=== PATIENT | female | born 1930 | race Caucasian/White ===

== ENCOUNTER 2017-06-24 15:51 | Emergency (ER) | payer MEDICARE, OTHER ==
[~2017-06-24] VITALS: Ht 160 cm; Wt 50.0 kg
[~2017-06-24 15:51] MED LIST: LASI20TA PO; NAPR550 PO; VITA500T49 PO
[2017-06-24 16:01] VITALS: BP 135/63; PULSE 75; RESP 19; TEMP 97.8; O2SAT 95
--- NOTE | 2017-06-24 16:32 | PD ---
HPI Chief Complaint: Fall Time Seen by Provider: 16:29 Travel History International Travel<30 days: No Contact w/Intl Traveler<30days: No Traveled to known affect area: No History of Present Illness HPI Patient comes in from assisted living facility where she had a witnessed fall while transferring from one seat to another. Patient states that she fell backwards hitting her head and lost consciousness. Staff reports that this was a witnessed fall and loss of consciousness confirmed. Patient reports only pain she is having over the bump on her head from where she hit the ground. Denies anything making it better. States is worse to palpation. Denies any radiation. Denies any headache, change in vision, neck pain, numbness or tingling anywhere, chest pain, shortness of breath, or other concerns. Patient denies taking any blood thinners she is aware. PFSH Past Medical History Hx Anticoagulant Therapy: Yes ([facility] STAFF STATES PT IS ON DAILY BABY ASPIRIN. THIS IS NOT ON MED LIST) Arthritis: No Asthma: No Heart Rhythm Problems: No Cancer: No Cardiovascular Problems: No High Cholesterol: No Chest Pain: No Congestive Heart Failure: No COPD: No Cerebrovascular Accident: No Diabetes: No Diminished Hearing: No GERD: No Glaucoma: No Genitourinary: No Headaches: No Hepatitis: No Hiatal Hernia: No Hypertension: No Kidney Stones: No Musculoskeletal: No Neurologic: No Reproductive: No Respiratory: No Migraines: No Myocardial Infarction: No Renal Failure: No Seizures: No Sleep Apnea: No Thyroid Disease: No Ulcer: No PNEUMOCCOCAL Vaccine (Year): 2 Menopausal: Yes : 2 Para: 2 Past Surgical History Abdominal Surgery: No Appendectomy: No Cardiac Surgery: No Section: No Cholecystectomy: No Ear Surgery: No Endocrine Surgery: No Eye Surgery: Yes (BILAT. CATARACT REMOVAL) Genitourinary Surgery: No Gynecologic Surgery: Yes (UTERINE PROLASE REPAIR 2007) Oral Surgery: No Pacemaker: No Thoracic Surgery: No Tonsillectomy: Yes Other Surgery: Yes Social History Alcohol Use: No Tobacco Use: No Substance Use: No Allergies-Medications (Allergen,Severity, Reaction): Coded Allergies: Sulfa (Verified Allergy, Severe, PASSES OUT, 04/07/12) Reported Meds & Prescriptions Reported Meds & Active Scripts Active Anaprox Ds (Naproxen Sodium) 550 Mg Tab 550 Mg PO BID Reported Vitamin B12 (Cyanocobalamin) 500 Mcg Tab 500 Mcg PO DAILY Lasix (Furosemide) 20 Mg Tab 20 Mg PO DAILY Review of Systems Except as stated in HPI: all other systems reviewed are Neg Physical Exam Narrative GENERAL: Well-developed, well nourished, in no acute distress, and non-ill appearing. SKIN: Focused skin assessment warm and dry. Small hematoma left occipital lobe that is tender to palpation. There is no skull depression or crepitus. HEAD: Atraumatic. Normocephalic. EYES: Pupils equal and round. EOMI. No scleral icterus. No injection or drainage. ENT: No nasal bleeding or discharge. Mucous membranes pink and moist. NECK: Trachea midline. Supple. No nuclear rigidity. No cervical spine tenderness or crepitus. CARDIOVASCULAR: Regular rate and rhythm. No murmur appreciated. RESPIRATORY: No accessory muscle use. No respiratory distress. Clear to auscultation. Breath sounds equal bilaterally. GASTROINTESTINAL: Abdomen soft, non-tender, nondistended, and no guarding. Hepatic and splenic margins not palpable. No pulsatile mass. MUSCULOSKELETAL: No obvious deformities. No clubbing. No cyanosis. No edema. Full range of motion. Sensation intact and equal bilateral deltoid. Radial pulses 2+, intact, and equal bilaterally. NEUROLOGICAL: Awake and alert. No obvious cranial nerve deficits. Motor grossly within normal limits. Normal speech. PSYCHIATRIC: Appropriate mood and affect; insight and judgment normal. Data Data Last Documented VS Vital Signs Date Time Temp Pulse Resp B/P Pulse Ox O2 Delivery O2 Flow Rate FiO2 06/25/17 06:22 73 16 136/72 98 Room Air 06/24/17 16:[address] Brain W/O Iv Contrast(Rout) (06/24/17 ) Ct Cerv Spine W/O Contrast (06/24/17 ) Apply Cervical Collar (06/24/17 16:28) Ice/Cold Pack (06/24/17 16:28) MDM Medical Decision Making Medical Screen Exam Complete: Yes Emergency Medical Condition: Yes Interpretation(s) CT cervical spine read by the radiologist shows: Degenerative changes. No evidence of acute bony injury in the cervical spine. CT scan of head read by the radiologist: Normal examination for a patient of this age. No significant change has occurred. Differential Diagnosis Closed head injury, hemorrhage, fracture, strain, fall, hematoma, other Narrative Course Patient presents with closed head injury. There was no evidence of cranial or intracranial injury noted on CT of the head and no evidence of fracture or injury to cervical spine on C-spine CT. The patient has been behaving normally and no notable altered mental status. [place] score of 15. The neurologic exam is normal. The patient is awake and aware and motor sensory exams are normal. There is no clinical evidence to support intracranial injury or bleed. Patient in no obvious distress upon re-evaluation. All pertinent Radiology result(s) discussed with patient. Any questions/concerns in reference to patient diagnosis/condition discussed and clarified prior to patient's discharge. Discussed patient with Dr. Marquez prior to discharge, who is in agreement with plan of care and disposition. Reinforced sheer importance of close follow up with patient's primary physician or primary care clinic. Instructed patient to return to ED immediately, if symptoms return/worsen. Pt showed understanding of above instructions. Further instructions and recommendations were detailed in discharge paperwork. Pt left without difficulty out of ED at discharge. Diagnosis Primary Impression: Closed head injury Qualified Code: S09.90XA - Closed head injury, initial encounter Additional Impressions: Hematoma Fall Qualified Code: W19.XXXA - Fall, initial encounter Patient Instructions: Fall Prevention for Older Adults (ED), General Instructions, Head Injury (ED), Hematoma (ED) Additional Instructions: Follow-up with your primary care physician one to 2 days for reevaluation. Apply ice to affected area twice as needed for pain. Return to the emergency department if symptoms get worse. Disposition: 01 DISCHARGE HOME Condition: Stable Scotty Daly Jun 24, 2017 16:32
--- NOTE | 2017-06-24 17:42 | RADRPT ---
EXAM DATE/TIME: 06/24/2017 17:26 [facility] COMPARISON: No previous studies available for comparison. INDICATIONS : Trauma. Fall. Contusion back of head. RADIATION DOSE: 37.41 CTDIvol (mGy) MEDICAL HISTORY : None SURGICAL HISTORY : None. ENCOUNTER: Initial ACUITY: 1 day PAIN SCALE: 5/10 LOCATION: cranial TECHNIQUE: Multiple contiguous axial images were obtained of the head. Using automated exposure control and adj ustment of the mA and/or kV according to patient size, radiation dose was kept as low as reasonably a chievable to obtain optimal diagnostic quality images. DICOM format image data is available electro nically for review and comparison. FINDINGS: CEREBRUM: The ventricles are normal for age. No evidence of midline shift, mass lesion, hemorrhage or acute in farction. No extra-axial fluid collections are seen. POSTERIOR FOSSA: The cerebellum and brainstem are intact. The 4th ventricle is midline. The cerebellopontine angle i s unremarkable. EXTRACRANIAL: The visualized portion of the orbits is intact. SKULL: The calvaria is intact. No evidence of skull fracture. CONCLUSION: Normal examination for a patient of this age. No significant change has occurred. Tomasz Sanchez MD on June 24, 2017 at 17:39 Board Certified Radiologist. This report was verified electronically.
[2017-06-24 17:48] VITALS: BP 141/61; PULSE 68; RESP 17; O2SAT 98
--- NOTE | 2017-06-24 17:57 | RADRPT ---
EXAM DATE/TIME: 06/24/2017 17:28 [facility] COMPARISON: No previous studies available for comparison. INDICATIONS : Trauma. Fall. RADIATION DOSE: 21.24 CTDIvol (mGy) MEDICAL HISTORY : None SURGICAL HISTORY : None. ENCOUNTER: Initial ACUITY: 1 day PAIN SCALE: 5/10 LOCATION: neck TECHNIQUE: Volumetric scanning of the cervical spine was performed. Multiplanar reconstructions in the sagittal, coronal and oblique axial planes were performed. Using automated exposure control and adjustment o f the mA and/or kV according to patient size, radiation dose was kept as low as reasonably achievable to obtain optimal diagnostic quality images. DICOM format image data is available electronically f or review and comparison. FINDINGS: The cervical spine alignment is satisfactory. There is no evidence of fracture. No significant bony c anal or foraminal compromise is noted. There is mild degenerative change with disc space narrowing an d endplate osteophyte formation most significantly at C5-6. Mild broad disc protrusion is present, mo st conspicuously at C4-5. There are degenerative changes in the posterior facet joints, most notably at the cervicothoracic junction level. There is no evidence of paraspinal hematoma. CONCLUSION: Degenerative changes. No evidence of acute bony injury in the cervical spine Clement Londono MD on June 24, 2017 at 17:54 Board Certified Radiologist. This report was verified electronically.
[2017-06-24 23:00] VITALS: BP 153/68; PULSE 79; RESP 16; O2SAT 99
[2017-06-25 06:22] VITALS: BP 136/72; PULSE 73; RESP 16; O2SAT 98
== END 2017-06-25 07:39 | disposition home or self-care (01) ==
LOC: NEPE 15:51
DX: S09.90XA Unspecified injury of head, initial encounter (principal); S00.83XA Contusion of other part of head, initial encounter; W18.30XA Fall on same level, unspecified, initial encounter; Z79.899 Other long term (current) drug therapy
CPT/HCPCS: 70450; 72125; 99285

== ENCOUNTER 2017-09-23 07:58 | Inpatient (IN) | payer MEDICARE, OTHER ==
[2017-09-23] VITALS (12 sets, daily range): BP systolic 102–120; BP diastolic 51–78; PULSE 71–96; RESP 17–22; TEMP 97–100.7; O2SAT 90–97
[~2017-09-23] VITALS: Ht 165.1 cm; Wt 51.3 kg
[2017-09-23] MEDS ORDERED: SODIUM CHLOR 0.9% 1000 ML INJ 1,000 ML IV ONE ×2 (08:07)
[2017-09-23] MEDS ORDERED: SODIUM CHLOR 0.9% 1000 ML INJ 400 ML IV ONE (08:07)
[2017-09-23] MEDS ORDERED: ACETAMINOPHEN 650 MG SUPP RECTAL ONE (08:15)
--- NOTE | 2017-09-23 08:25 | PD ---
HPI . Cough Chief Complaint: Altered Mental Status Time Seen by Provider: 08:07 Travel History International Travel<30 days: No Contact w/Intl Traveler<30days: No Traveled to known affect area: No History of Present Illness HPI This is a [facility] resident who was sent to us for evaluation of cough and altered mental status. Onset of symptoms was about 3 days ago. Symptoms have reportedly been getting progressively worse. This patient is nonverbal this morning and is unable to help us with her history and physical. PFSH Past Medical History Narrative Medical This lady really doesn't have any chronic medical problems such as hypertension or diabetes. Hx Anticoagulant Therapy: Yes ([facility]NF STAFF STATES PT IS ON DAILY BABY ASPIRIN. THIS IS NOT ON MED LIST) Arthritis: No Asthma: No Anxiety: Yes Heart Rhythm Problems: No Cancer: No Cardiovascular Problems: No High Cholesterol: No Chest Pain: No Congestive Heart Failure: No COPD: No Cerebrovascular Accident: No Dementia: Yes Diabetes: No Diminished Hearing: No GERD: No Glaucoma: No Genitourinary: Yes (UTI ) Headaches: No Hepatitis: No Hiatal Hernia: No Hypertension: No Kidney Stones: No Medical other: Yes (VIT D DEFICIENCY, HYPOKALEMIA) Musculoskeletal: No Neurologic: Yes (INSOMNIA ) Psychiatric: Yes Reproductive: No Respiratory: No Migraines: No Myocardial Infarction: No Renal Failure: No Schizophrenia: Yes Seizures: No Sleep Apnea: No Thyroid Disease: No Ulcer: No PNEUMOCCOCAL Vaccine (Year): 2 Menopausal: Yes : 2 Para: 2 Past Surgical History Abdominal Surgery: No Appendectomy: No Cardiac Surgery: No Section: No Cholecystectomy: No Ear Surgery: No Endocrine Surgery: No Eye Surgery: Yes (BILAT. CATARACT REMOVAL) Genitourinary Surgery: No Gynecologic Surgery: Yes (UTERINE PROLASE REPAIR 2007) Oral Surgery: No Pacemaker: No Thoracic Surgery: No Tonsillectomy: Yes Other Surgery: Yes Social History Alcohol Use: No Tobacco Use: No Substance Use: No Allergies-Medications (Allergen,Severity, Reaction): Coded Allergies: Sulfa (Sulfonamide Antibiotics) (Verified Allergy, Intermediate, hives, ) Reported Meds & Prescriptions Reported Meds & Active Scripts Active Reported Ipratropium Neb (Ipratropium [place]) 0.5 Mg/2.5 Ml Amp 0.5 Mg NEB Q6HR NEB PRN Quetiapine (Quetiapine Fumarate) 50 Mg Tab 50 Mg PO HS Aricept (Donepezil) 23 Mg Tab 10 Mg PO HS Do not split, crushed or chewed. Allergy Relief (Loratadine) 10 Mg Tab 10 Mg PO DAILY 7 Days Potassium Chloride Liq (Potassium Chloride) 20 Meq/15 Ml Soln 10 Meq PO DAILY Vitamin D (Cholecalciferol) 2,000 Unit Cap 1,000 Tab PO DAILY Lasix (Furosemide) 20 Mg Tab 20 Mg PO BID Megace Liq (Megestrol Acetate) 40 Mg/Ml Susp 400 Mg PO BID Temazepam 15 Mg Cap 15 Mg PO HS PRN Lorazepam 0.5 Mg Tab 0.5 Mg PO BID PRN Keflex (Cephalexin) 250 Mg Cap 250 Mg PO Q8HR 7 Days Review of Systems ROS Limitations: Other: (nonverbal) Physical Exam Narrative GENERAL: This patient is alert and she makes eye contact with me. SKIN: warm/dry. Intact. Good turgor. She does have numerous superficial bruises. HEAD: Normocephalic. Atraumatic. EYES: Pupils equal and round. No scleral icterus. No injection or drainage. ENT: No nasal bleeding or discharge. Mucous membranes pink and moist. NECK: Trachea midline. Full range of motion without pain.. CARDIOVASCULAR: Regular rate and rhythm. Heart sounds were normal. RESPIRATORY: No accessory muscle use. Clear to auscultation anteriorly. Breath sounds equal bilaterally. Wet sounding cough. Sats in the low 90s on oxygen. GASTROINTESTINAL: Abdomen soft. Nontender. Bowel sounds present. Nondistended. MUSCULOSKELETAL: No obvious deformities. NEUROLOGICAL: Awake and alert. No obvious cranial nerve deficits. Motor grossly within normal limits. Nonverbal. PSYCHIATRIC: Unable to assess. Data Data Last Documented VS Vital Signs Date Time Temp Pulse Resp B/P (MAP) Pulse Ox O2 Delivery O2 Flow Rate FiO2 09/23/17 09:32 99.1 88 18 116/78 (91) 97 Nasal Cannula 4.00 Orders Orders Electrocardiogram (09/23/17 08:07) Complete Blood Count With Diff (09/23/17 08:07) Comprehensive Metabolic Panel (09/23/17 08:07) Lactic Acid Sepsis Protocol (09/23/17 08:07) Urinalysis - C+S If Indicated (09/23/17 08:07) Blood Culture (09/23/17 08:07) Chest, Single Ap (09/23/17 08:07) Blood Glucose (09/23/17 08:07) Ecg Monitoring (09/23/17 08:07) Iv Access Insert/Monitor (09/23/17 08:07) Cath For Specimen (09/23/17 08:07) Oximetry (09/23/17 08:07) Oxygen Administration (09/23/17 08:07) Acetaminophen Supp (Tylenol Supp) (09/23/17 08:15) Sodium Chlor 0.9% 1000 Ml Inj (Ns 1000 M (09/23/17 08:07) Sodium Chlor 0.9% 1000 Ml Inj (Ns 1000 M (09/23/17 08:07) Sodium Chlor 0.9% 1000 Ml Inj (Ns 1000 M (09/23/17 08:07) Urine Culture (09/23/17 08:10) Ceftriaxone Inj (Rocephin Inj) (09/23/17 09:30) Azithromycin Inj (Zithromax Inj) (09/23/17 10:15) Labs Laboratory Tests Test 09/23/17 08:10 09/23/17 08:20 Urine Color YELLOW Urine Turbidity CLEAR Urine pH 7.0 Urine Specific [place] 1.018 Urine Protein 30 mg/dL Urine Glucose (UA) NEG mg/dL Urine Ketones NEG mg/dL Urine Occult Blood MOD Urine Nitrite NEG Urine Bilirubin NEG Urine Urobilinogen 2.0 MG/DL Urine Leukocyte Esterase SMALL Urine RBC 4 /hpf Urine WBC 8 /hpf Urine Transitional Epithelial Cells <1 /hpf Urine Bacteria RARE /hpf Urine Granular Casts 1 /lpf Microscopic Urinalysis Comment CATH-CULTURE IND White Blood Count 18.2 TH/MM3 Red Blood Count 3.71 MIL/MM3 Hemoglobin 11.7 GM/DL Hematocrit 34.7 % Mean Corpuscular Volume 93.5 FL Mean Corpuscular Hemoglobin 31.5 PG Mean Corpuscular Hemoglobin Concent 33.7 % Red Cell Distribution Width 14.0 % Platelet Count 366 TH/MM3 Mean Platelet Volume 8.1 FL Neutrophils (%) (Auto) 84.8 % Lymphocytes (%) (Auto) 10.3 % Monocytes (%) (Auto) 4.2 % Eosinophils (%) (Auto) 0.3 % Basophils (%) (Auto) 0.4 % Neutrophils # (Auto) 15.4 TH/MM3 Lymphocytes # (Auto) 1.9 TH/MM3 Monocytes # (Auto) 0.8 TH/MM3 Eosinophils # (Auto) 0.1 TH/MM3 Basophils # (Auto) 0.1 TH/MM3 CBC Comment DIFF FINAL Differential Comment Blood Urea Nitrogen 29 MG/DL Creatinine 0.97 MG/DL Random Glucose 108 MG/DL Total Protein 7.0 GM/DL Albumin 2.6 GM/DL Calcium Level 8.7 MG/DL Alkaline Phosphatase 60 U/L Aspartate Amino Transf (AST/SGOT) 29 U/L Alanine Aminotransferase (ALT/SGPT) 20 U/L Total Bilirubin 0.7 MG/DL Sodium Level 139 MEQ/L Potassium Level 3.8 MEQ/L Chloride Level 106 MEQ/L Carbon Dioxide Level 25.0 MEQ/L Anion Gap 8 MEQ/L Estimat Glomerular Filtration Rate 54 ML/MIN Lactic Acid Level 1.1 mmol/L MDM Medical Decision Making Medical Screen Exam Complete: Yes Emergency Medical Condition: Yes Medical Record Reviewed: Yes (this patient has been seen here in the past for injuries. She does not have any chronic medical issues.) Interpretation(s) EKG shows a normal sinus rhythm with no acute ischemic changes. Differential Diagnosis Differential diagnosis includes but is not limited to viral respiratory illness , bronchitis, pneumonia, allergies, CHF, asthma/COPD. Narrative Course This patient presents to us from a [facility] for evaluation of cough and altered mental status. Septic workup is in process. CBC & BMP Diagram 09/23/17 08:20 Total Protein 7.0, Albumin 2.6 L, Calcium Level 8.7, Alkaline Phosphatase 60, Aspartate Amino Transf (AST/SGOT) 29, Alanine Aminotransferase (ALT/SGPT) 20, Total Bilirubin 0.7 LA 1.1 UA>>mod blood, small LE, 4 RBCs, 8 WBCs, rare bact Last Impressions Chest X-Ray 09/23/17 0807 Signed Impressions: Service Date/Time: Saturday, September 23, 2017 08:15 - CONCLUSION: 1. Airspace consolidation in the right medial and left lower lung zones. Differential considerations include aspiration vs pneumonia given history of cough. Ramon Pires MD The chest x-ray was independently viewed by me. Critical Care Narrative Aggregate critical care time was 45 minutes. Time to perform other separately billable procedures was not included in the critical care time. My time did not include minutes spent treating any other patients simultaneously or on activities that did not directly contribute to the patient's treatment. The services I provided to this patient were to treat and/or prevent clinically significant deterioration due to sepsis and hypoxia I provided critical care services requiring my management, as noted below: Chart data review, documentation time, medication orders and management, vital sign assessments/reviewing monitor data, ordering and reviewing lab tests, ordering and interpreting/reviewing x-rays and diagnostic studies, care of the patient and discussion of the patient with the admitting physicians Sepsis Criteria SIRS Criteria (2 or more): Heart rate over 90, WBC > 73943, < 4000 or > 10% bands Sepsis Criteria (SIRS+source): Infect source susp/known Criteria Outcome: Meets SIRS criteria, Meets sepsis criteria Physician Communication Physician Communication Dr. Andrade will admit Diagnosis Primary Impression: Sepsis Qualified Codes: A41.9 - Sepsis, unspecified organism Additional Impressions: Pneumonia Qualified Codes: J18.9 - Pneumonia, unspecified organism Urinary tract infection Qualified Codes: N30.00 - Acute cystitis without hematuria Admitting Information Admitting Physician Requests: Admit Condition: Stable Ban Hernandez MD Sep 23, 2017 08:25
[2017-09-23] MEDS ORDERED: LORA-650 PO (08:40)
[2017-09-23] MEDS ORDERED: POTA10SO12 PO (08:40)
[2017-09-23] MEDS ORDERED: QUET5TAB PO (08:40)
[2017-09-23] MEDS ORDERED: CEPH-459 PO (08:40)
[2017-09-23] MEDS ORDERED: TEMA15CA PO (08:40)
[2017-09-23] MEDS ORDERED: FURO1TAB62 PO (08:40)
[2017-09-23] MEDS ORDERED: VITA200013 PO (08:40)
[2017-09-23] MEDS ORDERED: IPRA0.02 NEB (08:40)
[2017-09-23] MEDS ORDERED: LORA0.5T PO (08:40)
[2017-09-23] MEDS ORDERED: MEGE40S PO (08:40)
[2017-09-23] MEDS ORDERED: ARIC23TA PO (08:40)
[2017-09-23 08:43] LABS: BACTERIA, URINE RARE /hpf; BLOOD, URINE MOD (NEG); GLUCOSE,URINE NEG (NEG); GRANULAR CAST, URINE 1 /lpf; KETONE, URINE NEG (NEG); NITRITE,URINE NEG (NEG); TRANSITIONAL EPI CELLS, URINE <1 /hpf; URINE COLOR YELLOW (YELLW/STRAW)
[2017-09-23 08:44] LABS: AUTOMATED NEUTROPHIL # 15.4 TH/MM3 (1.8-7.7); BASOPHIL # 0.1 TH/MM3 (0-0.2); BASOPHIL % 0.4 % (0.0-2.0); EOSINOPHIL # 0.1 TH/MM3 (0-0.4); EOSINOPHIL % 0.3 % (0.0-4.0); HEMATOCRIT 34.7 % (35.0-46.0); HEMO FLAGS DIFF FINAL; LYMPH % 10.3 % (9.0-44.0); LYMPHOCYTE # 1.9 TH/MM3 (1.0-4.8); MEAN CELL VOLUME 93.5 FL (80.0-100.0); MEAN CORPUSCULAR HEMOGLOBIN 31.5 PG (27.0-34.0); MEAN CORPUSCULAR HGB CONC 33.7 % (32.0-36.0); MONO % 4.2 % (0.0-8.0); NEUT % 84.8 % (16.0-70.0); PLATELET COUNT 366 TH/MM3 (150-450); RED BLOOD COUNT 3.71 MIL/MM3 (4.00-5.30); WHITE BLOOD COUNT 18.2 TH/MM3 (4.0-11.0)
[2017-09-23 08:45] LABS: COMMENT (UR) CATH-CULTURE IND; CULTURE IF INDICATED CATH CULTURE IND
[2017-09-23 09:05] LABS: ANION GAP 8 MEQ/L (5-15); AST (GOT) 29 U/L (15-37); BLOOD UREA NITROGEN 29 MG/DL (7-18); CHLORIDE 106 MEQ/L (98-107); GLOMERULAR FILTRATION RATE 54 ML/MIN (>89); POTASSIUM 3.8 MEQ/L (3.5-5.1); SODIUM (NA) 139 MEQ/L (136-145)
[2017-09-23 09:06] LABS: ALT (GPT) 20 U/L (10-53)
[2017-09-23 09:08] LABS: ALKALINE PHOSPHATASE 60 U/L (45-117); TOTAL BILIRUBIN ADULT 0.7 MG/DL (0.2-1.0)
[2017-09-23] MEDS ORDERED: cefTRIAXone INJ 1,000 MG in SODIUM CHLORIDE 0.9% INJ 100 ML IV ONE (09:30)
--- NOTE | 2017-09-23 09:46 | RADRPT ---
EXAM DATE/TIME: 09/23/2017 08:15 [facility] COMPARISON: CHEST SINGLE AP, November 27, 2012, 17:03. INDICATIONS : Cough. MEDICAL HISTORY : None. SURGICAL HISTORY : None. ENCOUNTER: Initial ACUITY: 1 day PAIN SCORE: Non-responsive. LOCATION: Bilateral chest FINDINGS: Airspace consolidation in mild volume loss in the medial right and left lower lung zones. Cardiomedia stinal contours are within normal limits. Bony thorax is intact. CONCLUSION: 1. Airspace consolidation in the right medial and left lower lung zones. Differential considerations include aspiration vs pneumonia given history of cough. Ramon Pires MD on September 23, 2017 at 9:42 Board Certified Radiologist. This report was verified electronically.
[2017-09-23] MEDS ORDERED: AZITHROMYCIN INJ 500 MG in SODIUM CHLOR 0.9% 250 ML INJ 250 ML IV ONE (10:15)
[2017-09-23] MEDS ORDERED: RESP: ALBUTEROL 2.5 MG/IPRATROPIUM 0.5 MG NEB (PRN) INH (10:45)
[2017-09-23] MEDS ORDERED: ONDANSETRON HCL 4 MG/2 ML VIAL IV PUSH PRN (10:45)
[2017-09-23] MEDS ORDERED: ACETAMINOPHEN 325 MG SUPP RECTAL PRN (10:45)
--- NOTE | 2017-09-23 10:58 | HHI.HP ---
[facility] Jay[facility] Joshua M.D. Admission Diagnosis sepsis, pneumonia, UTI Diagnoses: (1) Dementia (2) Sepsis (3) Pneumonia (4) Urinary tract infection Chief Complaint: Respiratory distress Travel History International Travel<30 Days: No Contact w/Intl Traveler <30 Da: No Traveled to Known Affected Are: No Sepsis Criteria SIRS Criteria (2 or more): Heart rate over 90, WBC > 69187, < 4000 or > 10% bands Sepsis Criteria (SIRS+source): Infect source susp/known Criteria Outcome: Meets sepsis criteria History of Present Illness The patient is an 86-year-old female resident of [facility]. She has chronic history of dementia. For the last few days she has had increasing respiratory difficulty at the nursing facility. Chest x-ray done yesterday showed no acute cardiopulmonary disease. The patient has had fevers. She is unable to provide any history due to her dementia. History is gathered from electronic medical record, nursing facility documentation, discussion with ER physician, and discussion with patient's daughter Bella Mena. Review of Systems ROS Limitations: Clinical Condition (unobtainable secondary to dementia), Altered Mental Status Gastrointestinal: COMPLAINS OF: Vomiting Past Family Social History Past Medical History Chronic dementia Insomnia Anxiety Past Surgical History Bilateral cataract surgery Uterine prolapse repair 2008 Tonsillectomy Reported Medications Ipratropium Neb (Ipratropium [place]) 0.5 Mg/2.5 Ml Amp 0.5 Mg NEB Q6HR NEB PRN Quetiapine (Quetiapine Fumarate) 50 Mg Tab 50 Mg PO HS Aricept (Donepezil) 23 Mg Tab 10 Mg PO HS Do not split, crushed or chewed. Allergy Relief (Loratadine) 10 Mg Tab 10 Mg PO DAILY 7 Days Potassium Chloride Liq (Potassium Chloride) 20 Meq/15 Ml Soln 10 Meq PO DAILY Vitamin D (Cholecalciferol) 2,000 Unit Cap 1,000 Tab PO DAILY Lasix (Furosemide) 20 Mg Tab 20 Mg PO BID Megace Liq (Megestrol Acetate) 40 Mg/Ml Susp 400 Mg PO BID Temazepam 15 Mg Cap 15 Mg PO HS PRN Lorazepam 0.5 Mg Tab 0.5 Mg PO BID PRN Keflex (Cephalexin) 250 Mg Cap 250 Mg PO Q8HR 7 Days Allergies: Coded Allergies: Sulfa (Sulfonamide Antibiotics) (Verified Allergy, Intermediate, hives, ) Family History Unobtainable Social History Unobtainable Physical Exam Vital Signs Vital Signs Date Time Temp Pulse Resp B/P (MAP) Pulse Ox O2 Delivery O2 Flow Rate FiO2 09/23/17 09:32 99.1 88 18 116/78 (91) 97 Nasal Cannula 4.00 09/23/17 08:17 94 Nasal Cannula 4.00 09/23/17 08:17 94 Nasal Cannula 4.00 09/23/17 08:11 94 17 94 Nasal Cannula 4.00 09/23/17 08:00 100.7 96 17 120/60 (80) 90 Physical Exam GENERAL: Elderly female in no acute distress. HEENT: Normocephalic, atraumatic. Pupils equal, round and reactive. Extraocular movements intact. No scleral icterus. No injection or drainage. Oropharynx is clear. Mucous membranes are moist. CARDIOVASCULAR: Regular rate and rhythm without murmurs, gallops, or rubs. RESPIRATORY: Clear to auscultation. No wheezes, rales, or rhonchi. Breathing is non-labored. GASTROINTESTINAL: Abdomen soft, non-tender, nondistended. EXTREMITIES: No lower extremity edema. No calf tenderness. PSYCH: Sleeping, but awakens and answers questions. Patient is confused. Not oriented to location, year. Laboratory Laboratory Tests Test 09/23/17 08:10 09/23/17 08:20 Urine Color YELLOW Urine Turbidity CLEAR Urine pH 7.0 Urine Specific [place] 1.018 Urine Protein 30 Urine Glucose (UA) NEG Urine Ketones NEG Urine Occult Blood MOD Urine Nitrite NEG Urine Bilirubin NEG Urine Urobilinogen 2.0 Urine Leukocyte Esterase SMALL Urine RBC 4 Urine WBC 8 Urine Transitional Epithelial Cells <1 Urine Bacteria RARE Urine Granular Casts 1 Microscopic Urinalysis Comment CATH-CULTURE IND White Blood Count 18.2 Red Blood Count 3.71 Hemoglobin 11.7 Hematocrit 34.7 Mean Corpuscular Volume 93.5 Mean Corpuscular Hemoglobin 31.5 Mean Corpuscular Hemoglobin Concent 33.7 Red Cell Distribution Width 14.0 Platelet Count 366 Mean Platelet Volume 8.1 Neutrophils (%) (Auto) 84.8 Lymphocytes (%) (Auto) 10.3 Monocytes (%) (Auto) 4.2 Eosinophils (%) (Auto) 0.3 Basophils (%) (Auto) 0.4 Neutrophils # (Auto) 15.4 Lymphocytes # (Auto) 1.9 Monocytes # (Auto) 0.8 Eosinophils # (Auto) 0.1 Basophils # (Auto) 0.1 CBC Comment DIFF FINAL Differential Comment Blood Urea Nitrogen 29 Creatinine 0.97 Random Glucose 108 Total Protein 7.0 Albumin 2.6 Calcium Level 8.7 Alkaline Phosphatase 60 Aspartate Amino Transf (AST/SGOT) 29 Alanine Aminotransferase (ALT/SGPT) 20 Total Bilirubin 0.7 Sodium Level 139 Potassium Level 3.8 Chloride Level 106 Carbon Dioxide Level 25.0 Anion Gap 8 Estimat Glomerular Filtration Rate 54 Lactic Acid Level 1.1 Date/Time Source Procedure Growth Status 09/23/17 08:10 Blood Peripheral Aerobic Blood Culture Pending Received 09/23/17 08:10 Blood Peripheral Anaerobic Blood Culture Pending Received 09/23/17 08:10 Urine Catheterized Urine Urine Culture Pending Received Result Diagram: 09/23/1781909/23/17819 Imaging Last Impressions Chest X-Ray 09/23/17806 Signed Impressions: Service Date/Time: Saturday, September 23, 2017 08:15 - CONCLUSION: 1. Airspace consolidation in the right medial and left lower lung zones. Differential considerations include aspiration vs pneumonia given history of cough. MD Momo Stern VTE Risk Assessment Caprini VTE Risk Assessment: Mod/High Risk (score >= 2) Caprini Risk Assessment Model Point Value = 1 Point Value = 2 Point Value = 3 Point Value = 5 Age 41-60 Minor surgery BMI > 25 kg/m2 Swollen legs Varicose veins or History of unexplained or recurrent spontaneous Oral contraceptives or hormone replacement Sepsis (< 1 month) Serious lung disease, including pneumonia (< 1 month) Abnormal pulmonary function Acute myocardial infarction Congestive heart failure (< 1 month) History of inflammatory bowel disease Medical patient at bed rest Age 61-74 Arthroscopic surgery Major open surgery (> 45 min) Laparoscopic surgery (> 45 min) Malignancy Confined to bed (> 72 hours) Immobilizing plaster cast Central venous access Age >= 75 History of VTE Family history of VTE Factor V Leiden Prothrombin 13900A Lupus anticoagulant Anticardiolipin antibodies Elevated serum homocysteine Heparin-induced thrombocytopenia Other congenital or acquired thrombophilia Stroke (< 1 month) Elective arthroplasty Hip, pelvis, or leg fracture Acute spinal cord injury (< 1 month) Prophylaxis Regimen Total Risk Factor Score Risk Level Prophylaxis Regimen 0-1 Low Early ambulation 2 Moderate Order ONE of the following: *Sequential Compression Device (SCD) *Heparin 5000 units SQ BID 3-4 Higher Order ONE of the following medications: *Heparin 5000 units SQ TID *Enoxaparin/Lovenox 40 mg SQ daily (WT < 150 kg, CrCl > 30 mL/min) *Enoxaparin/Lovenox 30 mg SQ daily (WT < 150 kg, CrCl > 10-29 mL/min) *Enoxaparin/Lovenox 30 mg SQ BID (WT < 150 kg, CrCl > 30 mL/min) AND/OR *Sequential Compression Device (SCD) 5 or more Highest Order ONE of the following medications: *Heparin 5000 units SQ TID (Preferred with Epidurals) *Enoxaparin/Lovenox 40 mg SQ daily (WT < 150 kg, CrCl > 30 mL/min) *Enoxaparin/Lovenox 30 mg SQ daily (WT < 150 kg, CrCl > 10-29 mL/min) *Enoxaparin/Lovenox 30 mg SQ BID (WT < 150 kg, CrCl > 30 mL/min) AND *Sequential Compression Device (SCD) Assessment and Plan Assessment and Plan 1. Pneumonia, healthcare associated versus aspiration: Cover with Zosyn, azithromycin, Flagyl. Continue supplemental oxygen. Swallow evaluation by speech therapy. 2. Chronic dementia: Resume home medications when able to tolerate by mouth. 3. UTI: Continue antibiotics. 4. Sepsis: Secondary to above. Monitor leukocytosis, fever. Tachycardia has improved. 5. DVT prophylaxis: Indigo, GEN montero. 6. Discussed at length with the patient's daughter Bella Mena, who lives in [place], [place]. She states that she is the patient's power of attorney at law. She states that the patient is DO NOT RESUSCITATE. Will consult palliative care. Code Status DO NOT RESUSCITATE per patient's daughter, who is apparently the power of attorney at law. Problem Qualifiers (1) Sepsis: Qualified Codes: A41.9 - Sepsis, unspecified organism (2) Pneumonia: Qualified Codes: J18.9 - Pneumonia, unspecified organism (3) Urinary tract infection: Qualified Codes: N30.00 - Acute cystitis without hematuria Curry Andrade MD Sep 23, 2017 10:58
[2017-09-23] MEDS: NS + KCL 20 MEQ INJ 1,000 ML IV SCH (11:02)
[2017-09-23] MEDS: metroNIDAZOLE 500 MG INJ 100 ML IV SCH ×2 (11:03→19:31)
[2017-09-23] MEDS: PIPERACIL-TAZO 4.5 GM PREMIX 100 ML IV SCH ×2 (13:00→18:11)
--- NOTE | 2017-09-23 13:47 | PD.CONS ---
Consult Service Palliative Care Consult Requested By Dr. Raymond MD. . Primary Care Physician Jaylan Joshua M.D. Reason for Consultation a. To assist with evaluation and management of symptoms including: shortness of breath, debility, confusion b. To assist medical decision maker(s) with: better understanding of current medical conditions; weighing benefits/burdens of medical treatment options; making medical treatment decisions. . HPI History of Present Illness Patient is an 86 year old female who presented to the ED today on 09/23/17 from [facility] for cough, respiratory difficulty, and altered mental status. The patient has a medical history significant for dementia. * ED workup included the following: T:100.7, HR:96, RR:17, BP:120/60, SPO2:90%. WBC:18.2, Hb.7, Hct:34.7, BUN:29, eGFR:54, Albumin:2.6. U/A: Positive for UTI. ECG: Normal sinus rhythm. Chest CXR: Airspace consolidation in the right medial and left lower lung zones. Patient admitted for pneumonia, UTI, R/O sepsis. Patient seen and examined, no family at bedside, patient arouses to tactile stimuli, resting comfortably on stretcher, breathing is unlabored on 4L NC. Patient mumbles only a few words, unable to elicit much conversation, she follows simple one step commands, able to squeeze hands on BUE, equal soup person strength. Palliative Care was consulted to assist with symptom management and to discuss with the patient/family the benefits and burdens of his current illnesses and the options regarding future care. Function/Cognitive Trajectory Patient has a long standing history of dementia, she has resided in a senior care facility for some time. Pending further discussion with patient's family to obtain further information. . Review of Systems ROS Limitations: Altered Mental Status, Poor Historian (ROS per EMR and nursing facility report) Constitutional: COMPLAINS OF: Fever Respiratory: COMPLAINS OF: Cough, Shortness of breath Past Family Social History Coded Allergies: Sulfa (Sulfonamide Antibiotics) (Verified Allergy, Intermediate, hives, ) Past Medical History Chronic dementia Insomnia Anxiety Hiatal hernia Chronic bilateral lower extremity edema Vitamin D deficiency Hypokalemia UTI . Past Surgical History Bilateral cataract surgery Uterine prolapse repair 2008 Tonsillectomy . Reported Medications Reported Meds & Active Scripts Active Reported Ipratropium Neb (Ipratropium [place]) 0.5 Mg/2.5 Ml Amp 0.5 Mg NEB Q6HR NEB PRN Quetiapine (Quetiapine Fumarate) 50 Mg Tab 50 Mg PO HS Aricept (Donepezil) 23 Mg Tab 10 Mg PO HS Do not split, crushed or chewed. Allergy Relief (Loratadine) 10 Mg Tab 10 Mg PO DAILY 7 Days Potassium Chloride Liq (Potassium Chloride) 20 Meq/15 Ml Soln 10 Meq PO DAILY Vitamin D (Cholecalciferol) 2,000 Unit Cap 1,000 Tab PO DAILY Lasix (Furosemide) 20 Mg Tab 20 Mg PO BID Megace Liq (Megestrol Acetate) 40 Mg/Ml Susp 400 Mg PO BID Temazepam 15 Mg Cap 15 Mg PO HS PRN Lorazepam 0.5 Mg Tab 0.5 Mg PO BID PRN Keflex (Cephalexin) 250 Mg Cap 250 Mg PO Q8HR 7 Days . Current Medications Medications (Trade) Dose Ordered Sig/Rakel Route Start Time Stop Time Status Last Admin Potassium Chloride/Sodium Chloride 1,000 ml @ 50 mls/hr Q20H IV 09/23/17 10:38 09/23/17 11:02 Piperacillin Sod/ Tazobactam Sod 100 ml @ 200 mls/hr Q6H IV 09/23/17 13:00 09/23/17 13:00 Metronidazole 100 ml @ 100 mls/hr Q8H IV 09/23/17 12:00 09/23/17 11:03 Azithromycin 500 mg/Sodium Chloride 250 ml @ 250 mls/hr Q24H IV 09/24/17 09:00 (Duoneb Neb) 1 ampule Q4HR NEB PRN INH 09/23/17 10:45 (Zofran Inj) 4 mg Q6H PRN IV PUSH 09/23/17 10:45 (Tylenol Supp) 325 mg Q4H PRN RECTAL 09/23/17 10:45 . Family History Father had diabetes. Mother of an accident. . Substance Use Tobacco: Never smoked. Alcohol: None reported. Prescription med abuse: None reported. Illicits: None reported. . Psychosocial History Patient is , she has two adult children, a son and a daughter. Pending further discussion with patient's family. . Spiritual/Cultural Factors Latter-Day. . Health Care Surrogate: Copy in medical record Date completed: 03/27/17. . Health Care Surrogate(s): HCS: Bella Mena (daughter) Alternate HCS: Sherron Mena (son) . Ethical and Legal Issues None known. . Physical Exam Vital Signs Date Time Temp Pulse Resp B/P (MAP) Pulse Ox O2 Delivery O2 Flow Rate FiO2 09/23/17 13:02 98.4 74 18 104/57 (73) 97 Nasal Cannula 4.00 09/23/17 12:24 98.4 71 18 103/57 (72) 96 4.00 09/23/17 11:06 96 Nasal Cannula 4.00 09/23/17 10:59 98.8 86 18 105/67 (80) 96 Nasal Cannula 4.00 09/23/17 09:32 99.1 88 18 116/78 (91) 97 Nasal Cannula 4.00 09/23/17 08:17 94 Nasal Cannula 4.00 09/23/17 08:17 94 Nasal Cannula 4.00 09/23/17 08:11 94 17 94 Nasal Cannula 4.00 09/23/17 08:00 100.7 96 17 120/60 (80) 90 . 09/23/17 09/24/17 19:00 07:00 Intake Total 4250 ml Balance 4250 ml Intake IV Total 4250 ml . Exam CONSTITUTIONAL/GENERAL: This is an elderly, thin frail female patient, in no apparent distress, minimally verbal. TUBES/LINES/DRAINS: PIV x 2 SKIN: No jaundice, rashes, or lesions. Ecchymoses on upper extremities. No wounds seen anteriorly. Skin temperature appropriate. Not diaphoretic. HEAD: Atraumatic. Normocephalic. EYES: Pupils equal and round and reactive. Extraocular motions intact. No scleral icterus. No injection or drainage. Fundi not examined. ENT: Hard of hearing. Nose without bleeding or purulent drainage. NECK: Trachea midline. Supple, nontender. No palpable thyroid enlargement or nodularity. CARDIOVASCULAR: Regular rate and rhythm without murmurs, gallops, or rubs. No JVD. Peripheral pulses symmetric. RESPIRATORY/CHEST: Symmetric, unlabored respirations. Clear to auscultation. Breath sounds equal bilaterally. No wheezes, rales, or rhonchi. GASTROINTESTINAL: Abdomen soft, non-tender, nondistended. No guarding. Bowel sounds present. GENITOURINARY: Without palpable bladder distension. MUSCULOSKELETAL: Extremities without clubbing, cyanosis, or edema. No mottling or clubbing. LYMPHATICS: No palpable cervical or supraclavicular adenopathy. NEUROLOGICAL: Drowsy, arouses to tactile stimuli. Minimally verbal, mumbles a few words. Follows simple one step commands. PSYCHIATRIC:Unable to assess secondary to clinical condition. . Diagnostic Tests Laboratory Laboratory Tests Test 09/23/17 08:10 09/23/17 08:20 Urine Color YELLOW (YELLW/STRAW) Urine Turbidity CLEAR (CLEAR) Urine pH 7.0 (5.0-8.5) Urine Specific [place] 1.018 (1.002-1.035) Urine Protein 30 mg/dL (NEG-TRACE) Urine Glucose (UA) NEG mg/dL (NEG) Urine Ketones NEG mg/dL (NEG) Urine Occult Blood MOD (NEG) Urine Nitrite NEG (NEG) Urine Bilirubin NEG (NEG) Urine Urobilinogen 2.0 MG/DL (LESS THAN Urine Leukocyte Esterase SMALL (NEG) Urine RBC 4 /hpf (0-3) Urine WBC 8 /hpf (0-5) Urine Transitional Epithelial Cells <1 /hpf (NONE) Urine Bacteria RARE /hpf (NONE) Urine Granular Casts 1 /lpf (NONE) Microscopic Urinalysis Comment CATH-CULTURE IND White Blood Count 18.2 TH/MM3 (4.0-11.0) Red Blood Count 3.71 MIL/MM3 (4.00-5.30) Hemoglobin 11.7 GM/DL (11.6-15.3) Hematocrit 34.7 % (35.0-46.0) Mean Corpuscular Volume 93.5 FL (80.0-100.0) Mean Corpuscular Hemoglobin 31.5 PG (27.0-34.0) Mean Corpuscular Hemoglobin Concent 33.7 % (32.0-36.0) Red Cell Distribution Width 14.0 % (11.6-17.2) Platelet Count 366 TH/MM3 (150-450) Mean Platelet Volume 8.1 FL (7.0-11.0) Neutrophils (%) (Auto) 84.8 % (16.0-70.0) Lymphocytes (%) (Auto) 10.3 % (9.0-44.0) Monocytes (%) (Auto) 4.2 % (0.0-8.0) Eosinophils (%) (Auto) 0.3 % (0.0-4.0) Basophils (%) (Auto) 0.4 % (0.0-2.0) Neutrophils # (Auto) 15.4 TH/MM3 (1.8-7.7) Lymphocytes # (Auto) 1.9 TH/MM3 (1.0-4.8) Monocytes # (Auto) 0.8 TH/MM3 (0-0.9) Eosinophils # (Auto) 0.1 TH/MM3 (0-0.4) Basophils # (Auto) 0.1 TH/MM3 (0-0.2) CBC Comment DIFF FINAL Differential Comment Blood Urea Nitrogen 29 MG/DL (7-18) Creatinine 0.97 MG/DL (0.50-1.00) Random Glucose 108 MG/DL (74-106) Total Protein 7.0 GM/DL (6.4-8.2) Albumin 2.6 GM/DL (3.4-5.0) Calcium Level 8.7 MG/DL (8.5-10.1) Alkaline Phosphatase 60 U/L (45-117) Aspartate Amino Transf (AST/SGOT) 29 U/L (15-37) Alanine Aminotransferase (ALT/SGPT) 20 U/L (10-53) Total Bilirubin 0.7 MG/DL (0.2-1.0) Sodium Level 139 MEQ/L (136-145) Potassium Level 3.8 MEQ/L (3.5-5.1) Chloride Level 106 MEQ/L (98-107) Carbon Dioxide Level 25.0 MEQ/L (21.0-32.0) Anion Gap 8 MEQ/L (5-15) Estimat Glomerular Filtration Rate 54 ML/MIN (>89) Lactic Acid Level 1.1 mmol/L (0.4-2.0) Result Diagram: 09/23/1781909/23/17819 Microbiology Microbiology Date/Time Source Procedure Growth Status 09/23/17 08:10 Blood Peripheral Aerobic Blood Culture Pending Received 09/23/17 08:10 Blood Peripheral Anaerobic Blood Culture Pending Received 09/23/17 08:00 Blood Peripheral Aerobic Blood Culture Pending Received 09/23/17 08:00 Blood Peripheral Anaerobic Blood Culture Pending Received 09/23/17 11:00 Nasal Washing Influenza Types A,B Antigen (LUDA) - Final NEGATIVE FOR FLU A AND B ANTIGEN.... Complete 09/23/17 08:10 Urine Catheterized Urine Urine Culture Pending Received Imaging Last 72 hours Impressions Chest X-Ray 09/23/17 0807 Signed Impressions: Service Date/Time: Saturday, September 23, 2017 08:15 - CONCLUSION: 1. Airspace consolidation in the right medial and left lower lung zones. Differential considerations include aspiration vs pneumonia given history of cough. Ramon Pires MD . Patient/Family Conference Issues Discussed: Pending further family discussion... * Palliative care role, purpose, approach * Additional medical, psychosocial, and spiritual history * Patients general health, functional status, and cognitive changes in the months leading up to the current hospitalization * Patient/family understanding of the current medical problems * Patient/family understanding of prognosis * Patients goals of care as best understood from advance directives and/or conversations and/or values * Current medical treatment options and benefits/burdens of those options * Likely scenarios comparing ongoing aggressive care with a transition to comfort measures only * Questions answered to the best of my ability * Palliative care contact information provided Assessment and Plan Disease Oriented Problem List: (1) Dementia (2) Pneumonia (3) Urinary tract infection (4) Sepsis Symptom Scale: (1) Confusion (2) Debility (3) Shortness of breath Pertinent Non-Medical Issues Psychosocial: Spiritual: Latter-Day. Legal: None known. Ethical issues impacting care: None known. . Important Contacts Bella Mena ([facility]) (daughter) [phone] Sherron Mena (son) [phone] . Code Status: No Code Plan * Legal decision maker: Patient is currently not capacitated to make informed medical decisions independently and will not regain capacity. Patient's daughter Bella Mena [phone] is the patient's documented HCS. * Goals: Pending further family discussion, attempted to call patient's daughter /[facility], awaiting return phone call. * CODE STATUS: DNR. * SYMPTOMS: --Confusion: Secondary to long standing history of dementia. Recommend ongoing reorientation. --Debility: Multifactorial, due to advanced age, dementia, etc. Patient would benefit from PT/OT when stable. --Shortness of breath: Patient currently breathing comfortably on 4L NC, duonebs q 4 hours PRN ordered. No recommendations at this time. * Palliative care will continue to follow during hospital course as condition evolves, to assist patient/decision-maker with understanding of medical conditions, weighing benefits/burdens of treatment options, for clarification of goals of treatment. Additionally will assist with any symptoms of palliative concern Thank you for the opportunity to participate in the care of Ms. Mena. Attestation To help prompt me to consider important information that might be impacting today's encounter and assessment, information from prior notes written by myself or my colleagues may have been "brought forward" into today's note. My signature on this note, however, is an attestation that I personally performed the exam, history, and/or decision-making noted today, and, unless otherwise indicated, the interactions with patient, family, and staff as well as the review of records all occurred today. I also attest that the listed assessment and stated plan reflect my best clinical judgment today based on the combination of historical information, prior notes, and today's exam/ interactions. When time spent is documented, it refers only to time spent today by the signer, or if indicated, combined time spent today by collaborating physician/nurse practitioner. Saritha Pack Sep 23, 2017 13:47
--- NOTE | 2017-09-23 20:07 | EKG ---
Date Performed: 09/23/2017 Time Performed: 08:18:27 PTAGE: 86 years EKG: Sinus rhythm WITH SHORT MO INTERVAL MODERATE T-WAVE ABNORMALITY, CONSIDER ANTEROLATERAL ISCHEMIA WHEN COMPARED TO PRIOR EKG THERE IS NEW ANTEROLATERAL T WAVE INVERSION CONCERNS FOR ISCHEMIA Clinical correlation is recommended ABNORMAL ECG PREVIOUS TRACING : 11/27/2012 16.37 DOCTOR: Kiera Dailey Interpretating Date/Time 09/23/2017 20:05:31
[2017-09-24] VITALS (7 sets, daily range): BP systolic 110–127; BP diastolic 53–64; PULSE 70–83; RESP 16–20; TEMP 96.4–98.9; O2SAT 90–93
[2017-09-24] MEDS: PIPERACIL-TAZO 4.5 GM PREMIX 100 ML IV SCH ×4 (00:55→17:56)
[2017-09-24] MEDS: metroNIDAZOLE 500 MG INJ 100 ML IV SCH ×3 (04:04→20:01)
[2017-09-24] MEDS: NS + KCL 20 MEQ INJ 1,000 ML IV SCH ×2 (06:21→09:23)
[2017-09-24 09:09] LABS: AUTOMATED NEUTROPHIL # 12.4 TH/MM3 (1.8-7.7); BASOPHIL # 0.1 TH/MM3 (0-0.2); BASOPHIL % 0.4 % (0.0-2.0); EOSINOPHIL # 0.2 TH/MM3 (0-0.4); HEMATOCRIT 31.8 % (35.0-46.0); HEMO FLAGS DIFF FINAL; LYMPH % 10.9 % (9.0-44.0); LYMPHOCYTE # 1.6 TH/MM3 (1.0-4.8); MEAN CORPUSCULAR HEMOGLOBIN 33.2 PG (27.0-34.0); MEAN CORPUSCULAR HGB CONC 34.9 % (32.0-36.0); MONO % 4.2 % (0.0-8.0); NEUT % 83.5 % (16.0-70.0); PLATELET COUNT 313 TH/MM3 (150-450); RED BLOOD COUNT 3.35 MIL/MM3 (4.00-5.30); RED CELL DISTRIBUTION WIDTH 14.1 % (11.6-17.2); WHITE BLOOD COUNT 14.8 TH/MM3 (4.0-11.0)
[2017-09-24] MEDS: AZITHROMYCIN INJ 500 MG in SODIUM CHLOR 0.9% 250 ML INJ 250 ML IV SCH (09:22)
[2017-09-24 11:12] LABS: BICARBONATE 19.4 MEQ/L (21.0-32.0); POTASSIUM 3.6 MEQ/L (3.5-5.1)
--- NOTE | 2017-09-24 13:53 | HHI.HCPN ---
Reason for visit a. To assist with evaluation and management of symptoms including: shortness of breath, debility, confusion b. To assist medical decision maker(s) with: better understanding of current medical conditions; weighing benefits/burdens of medical treatment options; making medical treatment decisions. . Subjective/Interval History Patient seen and examined, resting comfortably in bed, arouses to tactile stimuli, oriented to person only, follows simple one step commands. Leukocytosis improving today, WBC trending down from 18.2 to 14.8 today, afebrile, VSS. Palliative Care will continue to follow to assist with symptom management and to discuss with the patient/family the benefits and burdens of his current illnesses and the options regarding future care. Family/friend interactions Telephone conference with patient's son Sherron Mena as well as a separate telephone conference with patient's daughter Bella Mena, provided update on patient's clinical status as well as the following:\\ * Palliative care role, purpose, approach * Additional medical, psychosocial, and spiritual history * Patients general health, functional status, and cognitive changes in the months leading up to the current hospitalization * Family understanding of the current medical problems * Family understanding of prognosis * Current medical treatment options and benefits/burdens of those options * Questions answered to the best of my ability * Palliative care contact information provided Advance Directives Health Care Surrogate: Copy in medical record Advance Directive Specifics Date completed: 03/27/17. . Health Care Surrogate(s): HCS: Bella Mena (daughter) Alternate HCS: Sherron Mena (son) . Objective Vital Signs Date Time Temp Pulse Resp B/P (MAP) Pulse Ox O2 Delivery O2 Flow Rate FiO2 09/24/17 12:00 96.4 73 17 116/57 (76) 93 09/24/17 08:00 98.9 74 17 114/63 (80) 90 09/24/17 04:00 96.8 77 20 120/58 (78) 91 09/24/17 00:58 83 09/24/17 00:00 98.0 76 20 110/53 (72) 90 09/23/17 20:00 97.0 72 22 107/51 (69) 91 09/23/17 17:13 94 Nasal Cannula 4.00 09/23/17 16:00 97.7 79 20 112/58 (76) 94 09/23/17 15:30 98.1 74 18 102/59 (73) 97 Nasal Cannula 4.00 09/23/17 14:31 98.1 75 18 105/61 (76) 97 Nasal Cannula 4.00 Intake & Output 09/24/17 09/24/17 07:00 19:00 Intake Total 1300 ml Balance 1300 ml Intake Oral 0 ml IV Total 1300 ml # Voids 3 # Bowel Movements 1 . Physical Exam CONSTITUTIONAL/GENERAL: This is an elderly, thin frail female patient, in no apparent distress, minimally verbal. TUBES/LINES/DRAINS: PIV x 2 SKIN: No jaundice, rashes, or lesions. Ecchymoses on upper extremities. No wounds seen anteriorly. Skin temperature appropriate. Not diaphoretic. EYES: Pupils equal and round and reactive. Extraocular motions intact. No scleral icterus. No injection or drainage. Fundi not examined. ENT: Hard of hearing. Nose without bleeding or purulent drainage. CARDIOVASCULAR: Regular rate and rhythm without murmurs, gallops, or rubs. No JVD. Peripheral pulses symmetric. RESPIRATORY/CHEST: Symmetric, unlabored respirations. Clear to auscultation. Breath sounds equal bilaterally. No wheezes, rales, or rhonchi. GASTROINTESTINAL: Abdomen soft, non-tender, nondistended. No guarding. Bowel sounds present. MUSCULOSKELETAL: Extremities without clubbing, cyanosis, or edema. No mottling or clubbing. NEUROLOGICAL: Drowsy, arouses to tactile stimuli. Minimally verbal, mumbles a few words. Follows simple one step commands. PSYCHIATRIC:Unable to assess secondary to clinical condition. . Diagnostic Tests Laboratory Laboratory Tests Test 09/23/17 08:10 09/23/17 08:20 09/24/17 07:39 Urine Color YELLOW (YELLW/STRAW) Urine Turbidity CLEAR (CLEAR) Urine pH 7.0 (5.0-8.5) Urine Specific Vanderbilt 1.018 (1.002-1.035) Urine Protein 30 mg/dL (NEG-TRACE) Urine Glucose (UA) NEG mg/dL (NEG) Urine Ketones NEG mg/dL (NEG) Urine Occult Blood MOD (NEG) Urine Nitrite NEG (NEG) Urine Bilirubin NEG (NEG) Urine Urobilinogen 2.0 MG/DL (LESS THAN Urine Leukocyte Esterase SMALL (NEG) Urine RBC 4 /hpf (0-3) Urine WBC 8 /hpf (0-5) Urine Transitional Epithelial Cells <1 /hpf (NONE) Urine Bacteria RARE /hpf (NONE) Urine Granular Casts 1 /lpf (NONE) Microscopic Urinalysis Comment CATH-CULTURE IND White Blood Count 18.2 TH/MM3 (4.0-11.0) 14.8 TH/MM3 (4.0-11.0) Red Blood Count 3.71 MIL/MM3 (4.00-5.30) 3.35 MIL/MM3 (4.00-5.30) Hemoglobin 11.7 GM/DL (11.6-15.3) 11.1 GM/DL (11.6-15.3) Hematocrit 34.7 % (35.0-46.0) 31.8 % (35.0-46.0) Mean Corpuscular Volume 93.5 FL (80.0-100.0) 95.0 FL (80.0-100.0) Mean Corpuscular Hemoglobin 31.5 PG (27.0-34.0) 33.2 PG (27.0-34.0) Mean Corpuscular Hemoglobin Concent 33.7 % (32.0-36.0) 34.9 % (32.0-36.0) Red Cell Distribution Width 14.0 % (11.6-17.2) 14.1 % (11.6-17.2) Platelet Count 366 TH/MM3 (150-450) 313 TH/MM3 (150-450) Mean Platelet Volume 8.1 FL (7.0-11.0) 8.0 FL (7.0-11.0) Neutrophils (%) (Auto) 84.8 % (16.0-70.0) 83.5 % (16.0-70.0) Lymphocytes (%) (Auto) 10.3 % (9.0-44.0) 10.9 % (9.0-44.0) Monocytes (%) (Auto) 4.2 % (0.0-8.0) 4.2 % (0.0-8.0) Eosinophils (%) (Auto) 0.3 % (0.0-4.0) 1.0 % (0.0-4.0) Basophils (%) (Auto) 0.4 % (0.0-2.0) 0.4 % (0.0-2.0) Neutrophils # (Auto) 15.4 TH/MM3 (1.8-7.7) 12.4 TH/MM3 (1.8-7.7) Lymphocytes # (Auto) 1.9 TH/MM3 (1.0-4.8) 1.6 TH/MM3 (1.0-4.8) Monocytes # (Auto) 0.8 TH/MM3 (0-0.9) 0.6 TH/MM3 (0-0.9) Eosinophils # (Auto) 0.1 TH/MM3 (0-0.4) 0.2 TH/MM3 (0-0.4) Basophils # (Auto) 0.1 TH/MM3 (0-0.2) 0.1 TH/MM3 (0-0.2) CBC Comment DIFF FINAL DIFF FINAL Differential Comment Blood Urea Nitrogen 29 MG/DL (7-18) 21 MG/DL (7-18) Creatinine 0.97 MG/DL (0.50-1.00) 0.78 MG/DL (0.50-1.00) Random Glucose 108 MG/DL (74-106) 81 MG/DL (74-106) Total Protein 7.0 GM/DL (6.4-8.2) Albumin 2.6 GM/DL (3.4-5.0) Calcium Level 8.7 MG/DL (8.5-10.1) 8.1 MG/DL (8.5-10.1) Alkaline Phosphatase 60 U/L (45-117) Aspartate Amino Transf (AST/SGOT) 29 U/L (15-37) Alanine Aminotransferase (ALT/SGPT) 20 U/L (10-53) Total Bilirubin 0.7 MG/DL (0.2-1.0) Sodium Level 139 MEQ/L (136-145) 146 MEQ/L (136-145) Potassium Level 3.8 MEQ/L (3.5-5.1) 3.6 MEQ/L (3.5-5.1) Chloride Level 106 MEQ/L (98-107) 114 MEQ/L (98-107) Carbon Dioxide Level 25.0 MEQ/L (21.0-32.0) 19.4 MEQ/L (21.0-32.0) Anion Gap 8 MEQ/L (5-15) 13 MEQ/L (5-15) Estimat Glomerular Filtration Rate 54 ML/MIN (>89) 70 ML/MIN (>89) Lactic Acid Level 1.1 mmol/L (0.4-2.0) . Result Diagram: 09/24/17 0739 09/24/17 0739 Microbiology Microbiology Date/Time Source Procedure Growth Status 09/23/17 08:10 Blood Peripheral Aerobic Blood Culture - Preliminary NO GROWTH IN 1 DAY Resulted 09/23/17 08:10 Blood Peripheral Anaerobic Blood Culture - Preliminary NO GROWTH IN 1 DAY Resulted 09/23/17 08:00 Blood Peripheral Aerobic Blood Culture - Preliminary NO GROWTH IN 1 DAY Resulted 09/23/17 08:00 Blood Peripheral Anaerobic Blood Culture - Preliminary NO GROWTH IN 1 DAY Resulted 09/23/17 11:00 Nasal Washing Influenza Types A,B Antigen (LUDA) - Final NEGATIVE FOR FLU A AND B ANTIGEN.... Complete 09/23/17 08:10 Urine Catheterized Urine Urine Culture - Preliminary Gram Negative Pastor Resulted Imaging Last 72 hours Impressions Chest X-Ray 09/23/17 0807 Signed Impressions: Service Date/Time: Saturday, September 23, 2017 08:15 - CONCLUSION: 1. Airspace consolidation in the right medial and left lower lung zones. Differential considerations include aspiration vs pneumonia given history of cough. Ramon Pires MD Assessment and Plan Disease Oriented Problem List: (1) Dementia (2) Pneumonia (3) Urinary tract infection (4) Sepsis Symptom Scale: (1) Confusion (2) Debility (3) Shortness of breath Pertinent Non-Medical Issues Psychosocial: Patient has lived in [place] most of her life, she is and has two adult children, her son Sherron lives in [place] and her daughter Bella lives in [place]. She worked for the [employer] in the [employer] for over 10 years. She has been living independently for many years up until this April, when she was found wandering by her apartment complex's management staff, at which time they relayed to her family they would not renew the lease as it was unsafe. Her daughter had a short time frame to arrange a stable living situation for her mother given her rapidly progressive dementia, at that time she was moved to a SNF. Family is hoping to potentially move the patient to a facility closer to their residences. Spiritual: Hoahaoism. Legal: None known. Ethical issues impacting care: None known. . Important Contacts Bella Mena ([facility] (daughter) [phone] Sherron Mena Alternate HCS (son) [phone] . Prognosis Patient is an 86 year old female with a past medical history significant for dementia who was hospitalized for altered mental status, possible aspiration pneumonia, and UTI. Patient had been living independently, able to pay her own bills, go grocery shopping, make doctor appointments etc. up until April of this year at which point she was subsequently moved into a SNF. Due to her advanced age and per patient's family rapid decline in mentation secondary to dementia the patient is at an ongoing risk for complications and setbacks. . Code Status: No Code Plan * Legal decision maker: Patient is currently not capacitated to make informed medical decisions independently and will not regain capacity. Patient's daughter Bella Mena is the patient's documented HCS [phone], alternate HCS is patient's son Sherron Mena [phone]. * Goals: Pending clinical course. Discussed with the patient's family the likely trajectories given the patient's diagnosis of dementia, the typical subsequent health care decisions associated with the diagnosis that will likely need to be discussed in the future i.e. dysphagia/PEG tube/cognitive and functional decline, etc. * CODE STATUS: DNR. * SYMPTOMS: --Confusion: Secondary to long standing history of dementia. Recommend ongoing reorientation. --Debility: Multifactorial, due to advanced age, dementia, etc. Patient would benefit from PT/OT when stable. --Shortness of breath: Patient currently breathing comfortably on 4L NC, duonebs q 4 hours PRN ordered. No recommendations at this time. * Palliative care will continue to follow during hospital course as condition evolves, to assist patient/decision-maker with understanding of medical conditions, weighing benefits/burdens of treatment options, for clarification of goals of treatment. Additionally will assist with any symptoms of palliative concern Attestation To help prompt me to consider important information that might be impacting today's encounter and assessment, information from prior notes written by myself or my colleagues may have been "brought forward" into today's note. My signature on this note, however, is an attestation that I personally performed the exam, history, and/or decision-making noted today, and, unless otherwise indicated, the interactions with patient, family, and staff as well as the review of records all occurred today. I also attest that the listed assessment and stated plan reflect my best clinical judgment today based on the combination of historical information, prior notes, and today's exam/ interactions. When time spent is documented, it refers only to time spent today by the signer, or if indicated, combined time spent today by collaborating physician/nurse practitioner. Saritha Pack Sep 24, 2017 13:53
--- NOTE | 2017-09-24 15:07 | HHI.PR ---
Subjective Remarks Follow up pneumonia, dementia. The patient remains confused. No events reported by nursing. Objective Vitals Vital Signs Date Time Temp Pulse Resp B/P (MAP) Pulse Ox O2 Delivery O2 Flow Rate FiO2 09/24/17 12:00 96.4 73 17 116/57 (76) 93 09/24/17 08:00 98.9 74 17 114/63 (80) 90 09/24/17 04:00 96.8 77 20 120/58 (78) 91 09/24/17 00:58 83 09/24/17 00:00 98.0 76 20 110/53 (72) 90 09/23/17 20:00 97.0 72 22 107/51 (69) 91 09/23/17 17:13 94 Nasal Cannula 4.00 09/23/17 16:00 97.7 79 20 112/58 (76) 94 09/23/17 15:30 98.1 74 18 102/59 (73) 97 Nasal Cannula 4.00 I/O 09/23/17 09/23/17 09/23/17 09/24/17 09/24/17 09/24/17 07:00 15:00 23:00 07:00 15:00 23:00 Intake Total 4450 ml 200 ml 1200 ml Balance 4450 ml 200 ml 1200 ml Intake Oral 0 ml 0 ml IV Total 4450 ml 200 ml 1200 ml # Voids 3 3 # Bowel Movements 2 1 Result Diagram: 09/24/17 0739 09/24/17 0739 Imaging Last Impressions Chest X-Ray 09/23/17 0807 Signed Impressions: Service Date/Time: Saturday, September 23, 2017 08:15 - CONCLUSION: 1. Airspace consolidation in the right medial and left lower lung zones. Differential considerations include aspiration vs pneumonia given history of cough. Ramon Pires MD Objective Remarks General: Elderly female in no acute distress. Heart: Regular rate and rhythm. No murmur. Lungs: Clear to auscultation bilaterally. No wheezes, rales, or rhonchi. Breathing is nonlabored. Abdomen: Soft, nontender, nondistended. Extremities: No lower extremity edema. Psych: Alert, confused. Procedures None Urinary Catheter: No Vascular Central Line Catheter: No A/P Problem List: (1) Dementia ICD Code: F03.90 - Unspecified dementia without behavioral disturbance (2) Sepsis ICD Code: A41.9 - Sepsis, unspecified organism Status: Acute (3) Pneumonia ICD Code: J18.9 - Pneumonia, unspecified organism Status: Acute (4) Urinary tract infection ICD Code: N39.0 - Urinary tract infection, site not specified Status: Acute Assessment and Plan 1. Pneumonia, healthcare associated versus aspiration: Cover with Zosyn, azithromycin, Flagyl. Continue supplemental oxygen. Per speech therapy, mechanical soft diet with thin liquids. 2. Chronic dementia: Continue home medications. 3. UTI: Continue antibiotics. 4. Sepsis: Secondary to above. Monitor leukocytosis, fever. Tachycardia has improved. 5. DVT prophylaxis: Indigo, GEN montero. 6. Appreciate palliative care recommendations 7. CODE STATUS: DO NOT RESUSCITATE. Problem Qualifiers (1) Sepsis: Qualified Codes: A41.9 - Sepsis, unspecified organism (2) Pneumonia: Qualified Codes: J18.9 - Pneumonia, unspecified organism (3) Urinary tract infection: Qualified Codes: N30.00 - Acute cystitis without hematuria Curry Andrade MD Sep 24, 2017 15:07
[2017-09-24] MEDS ORDERED: LORazepam 0.5 MG TAB PO PRN (15:15)
[2017-09-24] MEDS: DONEPEZIL HCL 5 MG TAB PO SCH (20:02)
[2017-09-24] MEDS: FUROSEMIDE 20 MG TAB PO SCH (20:02)
[2017-09-24] MEDS: MEGESTROL ACETATE SUSP 400 MG/10 ML CUP PO SCH (20:02)
[2017-09-24] MEDS: QUEtiapine FUMARATE 25 MG TAB PO SCH (20:03)
[2017-09-25] VITALS (8 sets, daily range): BP systolic 129–158; BP diastolic 62–80; PULSE 69–80; RESP 16–20; TEMP 96.8–98.1; O2SAT 91–94
[2017-09-25] MEDS: PIPERACIL-TAZO 4.5 GM PREMIX 100 ML IV SCH ×4 (02:16→17:17)
[2017-09-25] MEDS: metroNIDAZOLE 500 MG INJ 100 ML IV SCH ×3 (05:08→21:15)
[2017-09-25 08:25] LABS: AUTOMATED NEUTROPHIL # 9.5 TH/MM3 (1.8-7.7); BASOPHIL # 0.1 TH/MM3 (0-0.2); BASOPHIL % 0.7 % (0.0-2.0); EOSINOPHIL # 0.2 TH/MM3 (0-0.4); EOSINOPHIL % 1.5 % (0.0-4.0); HEMATOCRIT 35.3 % (35.0-46.0); HEMO FLAGS DIFF FINAL; LYMPHOCYTE # 1.5 TH/MM3 (1.0-4.8); MEAN CELL VOLUME 94.9 FL (80.0-100.0); MEAN CORPUSCULAR HGB CONC 33.8 % (32.0-36.0); MONO % 4.7 % (0.0-8.0); NEUT % 80.1 % (16.0-70.0); PLATELET COUNT 377 TH/MM3 (150-450); RED BLOOD COUNT 3.72 MIL/MM3 (4.00-5.30); WHITE BLOOD COUNT 11.8 TH/MM3 (4.0-11.0)
[2017-09-25] MEDS: AZITHROMYCIN INJ 500 MG in SODIUM CHLOR 0.9% 250 ML INJ 250 ML IV SCH (08:37)
[2017-09-25 08:51] LABS: BICARBONATE 18.9 MEQ/L (21.0-32.0); POTASSIUM 3.5 MEQ/L (3.5-5.1)
[2017-09-25] MEDS: LORATADINE 10 MG TAB PO SCH (08:51)
[2017-09-25] MEDS: FUROSEMIDE 20 MG TAB PO SCH ×2 (08:51→20:29)
[2017-09-25] MEDS: POTASSIUM CHLORIDE 25 MEQ EFFERVESCENT TAB PO SCH (08:51)
[2017-09-25] MEDS: MEGESTROL ACETATE SUSP 400 MG/10 ML CUP PO SCH ×2 (08:51→20:30)
[2017-09-25] MEDS: CHOLECALCIFEROL (VIT D3) 1000 UNIT TAB PO SCH (08:52)
--- NOTE | 2017-09-25 10:35 | HHI.HCPN ---
Reason for visit a. To assist with evaluation and management of symptoms including: shortness of breath, debility, confusion b. To assist medical decision maker(s) with: better understanding of current medical conditions; weighing benefits/burdens of medical treatment options; making medical treatment decisions. . Subjective/Interval History Patient examined today for follow up, patient awake and alert, sitting up in bed resting comfortably in bed, oriented to person only, mumbles a few words, follows simple one step commands. Patient stated today "I like peanut butter". Leukocytosis continues to improve, trending down, BUN remains slightly elevated however trending down as well, eGFR improving as well. VSS stable. Speech evaluation ongoing, per documentation patient was too drowsy yesterday to reassess. Family/friend interactions Provided telephone update to patient's son and daughter via telephone. . Advance Directives Health Care Surrogate: Copy in medical record Advance Directive Specifics Date completed: 03/27/17. . Health Care Surrogate(s): HCS: Bella Mena (daughter) Alternate HCS: Sherron Mena (son) . Objective Vital Signs Date Time Temp Pulse Resp B/P (MAP) Pulse Ox O2 Delivery O2 Flow Rate FiO2 09/25/17 08:44 97.5 69 20 135/62 (86) 91 09/25/17 08:00 97.5 74 19 149/67 (94) 92 09/25/17 04:53 97.6 72 16 131/64 (86) 93 09/25/17 01:09 98.1 70 16 129/62 (84) 92 09/24/17 20:12 98.5 70 16 126/62 (83) 92 09/24/17 18:02 Nasal Cannula 4.00 09/24/17 16:00 97.2 72 17 127/64 (85) 92 09/24/17 12:00 96.4 73 17 116/57 (76) 93 Intake & Output 09/25/17 09/25/17 07:00 19:00 Intake Total 656 ml Balance 656 ml IV Total 656 ml # Voids 5 # Bowel Movements 2 . Physical Exam CONSTITUTIONAL/GENERAL: This is an elderly, thin frail female patient, in no apparent distress, mumbles a few words intermittently TUBES/LINES/DRAINS: PIV x 2 SKIN: No jaundice, rashes, or lesions. Ecchymoses on upper extremities. No wounds seen anteriorly. Skin temperature appropriate. Not diaphoretic. EYES: Pupils equal and round and reactive. Extraocular motions intact. No scleral icterus. No injection or drainage. Fundi not examined. ENT: Hard of hearing. Nose without bleeding or purulent drainage. CARDIOVASCULAR: Regular rate and rhythm without murmurs, gallops, or rubs. No JVD. Peripheral pulses symmetric. RESPIRATORY/CHEST: Symmetric, unlabored respirations. Clear to auscultation. Breath sounds equal bilaterally. No wheezes, rales, or rhonchi. GASTROINTESTINAL: Abdomen soft, non-tender, nondistended. No guarding. Bowel sounds present. MUSCULOSKELETAL: Extremities without clubbing, cyanosis, or edema. No mottling or clubbing. NEUROLOGICAL: Awake and alert. Oriented to person. Minimally verbal, mumbles a few words. Follows simple one step commands. PSYCHIATRIC:Unable to assess secondary to clinical condition. . Diagnostic Tests Laboratory Laboratory Tests Test 09/23/17 08:10 09/23/17 08:20 09/24/17 07:39 09/25/17 07:51 Urine Color YELLOW (YELLW/STRAW) Urine Turbidity CLEAR (CLEAR) Urine pH 7.0 (5.0-8.5) Urine Specific Gilman 1.018 (1.002-1.035) Urine Protein 30 mg/dL (NEG-TRACE) Urine Glucose (UA) NEG mg/dL (NEG) Urine Ketones NEG mg/dL (NEG) Urine Occult Blood MOD (NEG) Urine Nitrite NEG (NEG) Urine Bilirubin NEG (NEG) Urine Urobilinogen 2.0 MG/DL (LESS THAN Urine Leukocyte Esterase SMALL (NEG) Urine RBC 4 /hpf (0-3) Urine WBC 8 /hpf (0-5) Urine Transitional Epithelial Cells <1 /hpf (NONE) Urine Bacteria RARE /hpf (NONE) Urine Granular Casts 1 /lpf (NONE) Microscopic Urinalysis Comment CATH-CULTURE IND White Blood Count 18.2 TH/MM3 (4.0-11.0) 14.8 TH/MM3 (4.0-11.0) 11.8 TH/MM3 (4.0-11.0) Red Blood Count 3.71 MIL/MM3 (4.00-5.30) 3.35 MIL/MM3 (4.00-5.30) 3.72 MIL/MM3 (4.00-5.30) Hemoglobin 11.7 GM/DL (11.6-15.3) 11.1 GM/DL (11.6-15.3) 11.9 GM/DL (11.6-15.3) Hematocrit 34.7 % (35.0-46.0) 31.8 % (35.0-46.0) 35.3 % (35.0-46.0) Mean Corpuscular Volume 93.5 FL (80.0-100.0) 95.0 FL (80.0-100.0) 94.9 FL (80.0-100.0) Mean Corpuscular Hemoglobin 31.5 PG (27.0-34.0) 33.2 PG (27.0-34.0) 32.0 PG (27.0-34.0) Mean Corpuscular Hemoglobin Concent 33.7 % (32.0-36.0) 34.9 % (32.0-36.0) 33.8 % (32.0-36.0) Red Cell Distribution Width 14.0 % (11.6-17.2) 14.1 % (11.6-17.2) 14.0 % (11.6-17.2) Platelet Count 366 TH/MM3 (150-450) 313 TH/MM3 (150-450) 377 TH/MM3 (150-450) Mean Platelet Volume 8.1 FL (7.0-11.0) 8.0 FL (7.0-11.0) 7.7 FL (7.0-11.0) Neutrophils (%) (Auto) 84.8 % (16.0-70.0) 83.5 % (16.0-70.0) 80.1 % (16.0-70.0) Lymphocytes (%) (Auto) 10.3 % (9.0-44.0) 10.9 % (9.0-44.0) 13.0 % (9.0-44.0) Monocytes (%) (Auto) 4.2 % (0.0-8.0) 4.2 % (0.0-8.0) 4.7 % (0.0-8.0) Eosinophils (%) (Auto) 0.3 % (0.0-4.0) 1.0 % (0.0-4.0) 1.5 % (0.0-4.0) Basophils (%) (Auto) 0.4 % (0.0-2.0) 0.4 % (0.0-2.0) 0.7 % (0.0-2.0) Neutrophils # (Auto) 15.4 TH/MM3 (1.8-7.7) 12.4 TH/MM3 (1.8-7.7) 9.5 TH/MM3 (1.8-7.7) Lymphocytes # (Auto) 1.9 TH/MM3 (1.0-4.8) 1.6 TH/MM3 (1.0-4.8) 1.5 TH/MM3 (1.0-4.8) Monocytes # (Auto) 0.8 TH/MM3 (0-0.9) 0.6 TH/MM3 (0-0.9) 0.6 TH/MM3 (0-0.9) Eosinophils # (Auto) 0.1 TH/MM3 (0-0.4) 0.2 TH/MM3 (0-0.4) 0.2 TH/MM3 (0-0.4) Basophils # (Auto) 0.1 TH/MM3 (0-0.2) 0.1 TH/MM3 (0-0.2) 0.1 TH/MM3 (0-0.2) CBC Comment DIFF FINAL DIFF FINAL DIFF FINAL Differential Comment Blood Urea Nitrogen 29 MG/DL (7-18) 21 MG/DL (7-18) 20 MG/DL (7-18) Creatinine 0.97 MG/DL (0.50-1.00) 0.78 MG/DL (0.50-1.00) 0.69 MG/DL (0.50-1.00) Random Glucose 108 MG/DL (74-106) 81 MG/DL (74-106) 81 MG/DL (74-106) Total Protein 7.0 GM/DL (6.4-8.2) Albumin 2.6 GM/DL (3.4-5.0) Calcium Level 8.7 MG/DL (8.5-10.1) 8.1 MG/DL (8.5-10.1) 8.1 MG/DL (8.5-10.1) Alkaline Phosphatase 60 U/L (45-117) Aspartate Amino Transf (AST/SGOT) 29 U/L (15-37) Alanine Aminotransferase (ALT/SGPT) 20 U/L (10-53) Total Bilirubin 0.7 MG/DL (0.2-1.0) Sodium Level 139 MEQ/L (136-145) 146 MEQ/L (136-145) 145 MEQ/L (136-145) Potassium Level 3.8 MEQ/L (3.5-5.1) 3.6 MEQ/L (3.5-5.1) 3.5 MEQ/L (3.5-5.1) Chloride Level 106 MEQ/L (98-107) 114 MEQ/L (98-107) 113 MEQ/L (98-107) Carbon Dioxide Level 25.0 MEQ/L (21.0-32.0) 19.4 MEQ/L (21.0-32.0) 18.9 MEQ/L (21.0-32.0) Anion Gap 8 MEQ/L (5-15) 13 MEQ/L (5-15) 13 MEQ/L (5-15) Estimat Glomerular Filtration Rate 54 ML/MIN (>89) 70 ML/MIN (>89) 80 ML/MIN (>89) Lactic Acid Level 1.1 mmol/L (0.4-2.0) Result Diagram: 09/25/17 07509/25/17 0751 Microbiology Microbiology Date/Time Source Procedure Growth Status 09/23/17 08:10 Blood Peripheral Aerobic Blood Culture - Preliminary NO GROWTH IN 1 DAY Resulted 09/23/17 08:10 Blood Peripheral Anaerobic Blood Culture - Preliminary NO GROWTH IN 1 DAY Resulted 09/23/17 08:00 Blood Peripheral Aerobic Blood Culture - Preliminary NO GROWTH IN 1 DAY Resulted 09/23/17 08:00 Blood Peripheral Anaerobic Blood Culture - Preliminary NO GROWTH IN 1 DAY Resulted 09/23/17 11:00 Nasal Washing Influenza Types A,B Antigen (LUDA) - Final NEGATIVE FOR FLU A AND B ANTIGEN.... Complete 09/23/17 08:10 Urine Catheterized Urine Urine Culture - Final Escherichia Coli Complete Assessment and Plan Disease Oriented Problem List: (1) Dementia (2) Pneumonia (3) Urinary tract infection (4) Sepsis Symptom Scale: (1) Confusion (2) Debility (3) Shortness of breath Pertinent Non-Medical Issues Psychosocial: Patient has lived in [place] most of her life, she is and has two adult children, her son Sherron lives in [place] and her daughter Bella lives in [place]. She worked for the [employer] in the [employer] for over 10 years. She has been living independently for many years up until this April, when she was found wandering by her apartment complex's management staff, at which time they relayed to her family they would not renew the lease as it was unsafe. Her daughter had a short time frame to arrange a stable living situation for her mother given her rapidly progressive dementia, at that time she was moved to a SNF. Family is hoping to potentially move the patient to a facility closer to their residences. Spiritual: Jain. Legal: None known. Ethical issues impacting care: None known. . Important Contacts Bella Mena ([facility]) (daughter) [phone] Sherron Mena Alternate [facility] (son) [phone] . Prognosis Patient is an 86 year old female with a past medical history significant for dementia who was hospitalized for altered mental status, possible aspiration pneumonia, and UTI. Patient had been living independently, able to pay her own bills, go grocery shopping, make doctor appointments etc. up until April of this year at which point she was subsequently moved into a SNF. Due to her advanced age and per patient's family rapid decline in mentation secondary to dementia the patient is at an ongoing risk for complications and setbacks. . Code Status: No Code Plan * Legal decision maker: Patient is currently not capacitated to make informed medical decisions independently and will not regain capacity. Patient's daughter Bella Mena is the patient's documented HCS [phone], alternate HCS is patient's son Sherron Mena [phone]. * Goals: Pending clinical course. Family is very involved and concerned. Their goal/hope remains for the patient to be discharged back to SNF with hopes of eventually transferring her to a facility located closer to their residence in either [place] or [place]. * CODE STATUS: DNR. * SYMPTOMS: --Confusion: Secondary to long standing history of dementia. Recommend ongoing reorientation. --Debility: Multifactorial, due to advanced age, dementia, etc. Patient would benefit from PT/OT when stable. --Shortness of breath: Patient currently breathing comfortably on 4L NC, duonebs q 4 hours PRN ordered. No recommendations at this time. * Palliative care will continue to follow during hospital course as condition evolves, to assist patient/decision-maker with understanding of medical conditions, weighing benefits/burdens of treatment options, for clarification of goals of treatment. Additionally will assist with any symptoms of palliative concern Attestation To help prompt me to consider important information that might be impacting today's encounter and assessment, information from prior notes written by myself or my colleagues may have been "brought forward" into today's note. My signature on this note, however, is an attestation that I personally performed the exam, history, and/or decision-making noted today, and, unless otherwise indicated, the interactions with patient, family, and staff as well as the review of records all occurred today. I also attest that the listed assessment and stated plan reflect my best clinical judgment today based on the combination of historical information, prior notes, and today's exam/ interactions. When time spent is documented, it refers only to time spent today by the signer, or if indicated, combined time spent today by collaborating physician/nurse practitioner. Saritha Pack Sep 25, 2017 10:35
--- NOTE | 2017-09-25 19:27 | HHI.PR ---
Subjective Remarks Follow up pneumonia. Patient is more alert, but does not answer questions today. No events reported by nursing. Objective Vitals Vital Signs Date Time Temp Pulse Resp B/P (MAP) Pulse Ox O2 Delivery O2 Flow Rate FiO2 09/25/17 16:00 97.6 71 18 158/72 (100) 94 09/25/17 11:39 96.8 69 20 135/67 (89) 93 09/25/17 09:50 92 Nasal Cannula 3.00 09/25/17 08:44 97.5 69 20 135/62 (86) 91 09/25/17 08:00 97.5 74 19 149/67 (94) 92 09/25/17 04:53 97.6 72 16 131/64 (86) 93 09/25/17 01:09 98.1 70 16 129/62 (84) 92 09/24/17 20:12 98.5 70 16 126/62 (83) 92 I/O 09/24/17 09/24/17 09/24/17 09/25/17 09/25/17 09/25/17 07:00 15:00 23:00 07:00 15:00 23:00 Intake Total 1200 ml 400 ml 500 ml 656 ml 1450 ml 200 ml Balance 1200 ml 400 ml 500 ml 656 ml 1450 ml 200 ml Intake Oral 0 ml 0 ml 0 ml IV Total 1200 ml 400 ml 500 ml 656 ml 1450 ml 200 ml # Voids 3 4 5 5 # Bowel Movements 1 3 2 5 Result Diagram: 09/25/17 0751 09/25/17 0751 Imaging Last Impressions Chest X-Ray 09/23/17 0807 Signed Impressions: Service Date/Time: Saturday, September 23, 2017 08:15 - CONCLUSION: 1. Airspace consolidation in the right medial and left lower lung zones. Differential considerations include aspiration vs pneumonia given history of cough. Ramon Pires MD Objective Remarks General: Elderly female in no acute distress. Heart: Regular rate and rhythm. No murmur. Lungs: Clear to auscultation bilaterally. No wheezes, rales, or rhonchi. Breathing is nonlabored. Abdomen: Soft, nontender, nondistended. Extremities: No lower extremity edema. Psych: Alert, does not answer questions. Procedures None Urinary Catheter: No Vascular Central Line Catheter: No A/P Problem List: (1) Dementia ICD Code: F03.90 - Unspecified dementia without behavioral disturbance (2) Sepsis ICD Code: A41.9 - Sepsis, unspecified organism Status: Acute (3) Pneumonia ICD Code: J18.9 - Pneumonia, unspecified organism Status: Acute (4) Urinary tract infection ICD Code: N39.0 - Urinary tract infection, site not specified Status: Acute Assessment and Plan 1. Pneumonia, healthcare associated versus aspiration: Cover with Zosyn, azithromycin, Flagyl. Continue supplemental oxygen. Per speech therapy, keep NPO. 2. Chronic dementia: Continue home medications. 3. UTI: Continue antibiotics. Urine culture growing e coli. 4. Sepsis: Secondary to above. Monitor leukocytosis, fever. Tachycardia has improved. 5. DVT prophylaxis: GEN oSod. 6. Appreciate palliative care recommendations 7. CODE STATUS: DO NOT RESUSCITATE. Discharge Planning Pending further clinical improvement, plan return to SNF. Problem Qualifiers (1) Sepsis: Qualified Codes: A41.9 - Sepsis, unspecified organism (2) Pneumonia: Qualified Codes: J18.9 - Pneumonia, unspecified organism (3) Urinary tract infection: Qualified Codes: N30.00 - Acute cystitis without hematuria Curry Andrade MD Sep 25, 2017 19:27
[2017-09-25] MEDS: DONEPEZIL HCL 5 MG TAB PO SCH (20:29)
[2017-09-25] MEDS: QUEtiapine FUMARATE 25 MG TAB PO SCH (20:30)
[2017-09-25] MEDS: NS + KCL 20 MEQ INJ 1,000 ML IV SCH (22:38)
[2017-09-26] VITALS (8 sets, daily range): BP systolic 137–165; BP diastolic 65–96; PULSE 71–108; RESP 16–18; TEMP 96.9–97.7; O2SAT 91–94
[2017-09-26] MEDS: PIPERACIL-TAZO 4.5 GM PREMIX 100 ML IV SCH ×4 (00:08→17:30)
[2017-09-26] MEDS: metroNIDAZOLE 500 MG INJ 100 ML IV SCH (04:00)
[2017-09-26] MEDS: FUROSEMIDE 20 MG TAB PO SCH ×3 (09:00→21:00)
[2017-09-26] MEDS: MEGESTROL ACETATE SUSP 400 MG/10 ML CUP PO SCH ×3 (09:00→21:00)
[2017-09-26] MEDS: LORATADINE 10 MG TAB PO SCH ×2 (10:43→10:51)
[2017-09-26] MEDS: CHOLECALCIFEROL (VIT D3) 1000 UNIT TAB PO SCH ×2 (10:43→10:51)
[2017-09-26] MEDS: POTASSIUM CHLORIDE 25 MEQ EFFERVESCENT TAB PO SCH (10:44)
[2017-09-26] MEDS: AZITHROMYCIN INJ 500 MG in SODIUM CHLOR 0.9% 250 ML INJ 250 ML IV SCH (10:53)
--- NOTE | 2017-09-26 11:31 | HHI.PR ---
Subjective Remarks Follow-up pneumonia, UTI. Patient is much more alert today, but remains confused. She states that she feels fine. No specific complaints at this time. Objective Vitals Vital Signs Date Time Temp Pulse Resp B/P (MAP) Pulse Ox O2 Delivery O2 Flow Rate FiO2 09/26/17 09:55 91 21 09/26/17 08:00 97.4 71 18 143/83 (103) 92 09/26/17 05:36 97.7 71 16 149/65 (93) 93 09/26/17 00:33 96.9 76 16 137/67 (90) 94 09/25/17 20:26 96.9 80 16 138/80 (99) 92 09/25/17 20:18 Nasal Cannula 3.00 09/25/17 16:00 97.6 71 18 158/72 (100) 94 09/25/17 11:39 96.8 69 20 135/67 (89) 93 I/O 09/25/17 09/25/17 09/25/17 09/26/17 09/26/17 09/26/17 07:00 15:00 23:00 07:00 15:00 23:00 Intake Total 656 ml 1450 ml 450 ml 100 ml Balance 656 ml 1450 ml 450 ml 100 ml Intake Oral 0 ml IV Total 656 ml 1450 ml 450 ml 100 ml # Voids 5 5 6 # Bowel Movements 2 5 3 Result Diagram: 09/25/17 0751 09/25/17 0751 Imaging Last Impressions Chest X-Ray 09/23/17 0807 Signed Impressions: Service Date/Time: Saturday, September 23, 2017 08:15 - CONCLUSION: 1. Airspace consolidation in the right medial and left lower lung zones. Differential considerations include aspiration vs pneumonia given history of cough. Ramon Pires MD Objective Remarks General: Elderly female in no acute distress. Heart: Regular rate and rhythm. No murmur. Lungs: Clear to auscultation bilaterally. No wheezes, rales, or rhonchi. Breathing is nonlabored. Abdomen: Soft, nontender, nondistended. Extremities: No lower extremity edema. Psych: Alert, confused, but does answer questions today. Procedures None Urinary Catheter: No Vascular Central Line Catheter: No A/P Problem List: (1) Dementia ICD Code: F03.90 - Unspecified dementia without behavioral disturbance (2) Sepsis ICD Code: A41.9 - Sepsis, unspecified organism Status: Acute (3) Pneumonia ICD Code: J18.9 - Pneumonia, unspecified organism Status: Acute (4) Urinary tract infection ICD Code: N39.0 - Urinary tract infection, site not specified Status: Acute Assessment and Plan 1. Pneumonia, healthcare associated versus aspiration: Cover with Zosyn, azithromycin. Continue supplemental oxygen. Per speech therapy, keep NPO. 2. Chronic dementia: Continue home medications. 3. UTI: Continue antibiotics. Urine culture growing e coli. 4. Sepsis: Secondary to above. Monitor leukocytosis, fever. Tachycardia has improved. 5. DVT prophylaxis: Indigo, GEN montero. 6. Palliative care following 7. Poor oral intake: Appreciate speech therapy recommendations. Currently nothing by mouth. Patient is unable to take by mouth, will need supplemental nutrition, either TPN or tube feeds. Palliative care recommendations. 8. CODE STATUS: DO NOT RESUSCITATE. Discharge Planning Pending further clinical improvement, plan return to SNF. Problem Qualifiers (1) Sepsis: Qualified Codes: A41.9 - Sepsis, unspecified organism (2) Pneumonia: Qualified Codes: J18.9 - Pneumonia, unspecified organism (3) Urinary tract infection: Qualified Codes: N30.00 - Acute cystitis without hematuria Curry Andrade MD Sep 26, 2017 11:31
--- NOTE | 2017-09-26 12:17 | HHI.HCPN ---
Reason for visit a. To assist with evaluation and management of symptoms including: shortness of breath, debility, confusion b. To assist medical decision maker(s) with: better understanding of current medical conditions; weighing benefits/burdens of medical treatment options; making medical treatment decisions. . Subjective/Interval History Patient seen in her room in bed , preoccupied with a "craft cloth tied to her bed". Patient alert and oriented to person only though she takes time to remember her name. She not oriented to place time and situation. Patient is pleasantly confused. Patient denies pain. Patient mumbling some words and stating that she will send me a [employer] card after i asked her where she lives. Patient has a "wet cough". Remains afebrile.SBP 130s-140s. O2 saturation low 90s on room air. No recent laboratory workup and imaging. 1500hrs Patient failed swallow evaluation. Currently NPO. 1515hrs Case discussed with bedside YON Rosario and Dr. Andrade- discussed swallow evaluation results and possibility of temporary insertion of NGT and PEG tube if patient does not pass swallow evaluation. Currently patient is NPO. 1525hrs Attempted calling patient`s son multiple times using the hospital phone to give him an updated but was not able to even leave a message because his phone had the message, "does not accept calls from blocked numbers". Telephone call to patient`s daughter Bella Mena. Updated her on patient`s medical status and notified her that patient has failed swallow evaluation today and discussed possibility of temporarily inserting an NGT for nutrition and hope that she will pass swallow evaluation. Discussed that if she does not pass swallow evaluation patient will require a PEG tube placement. Discussed patient`s risk of aspiration. Given patient`s dementia, daughter concerned that patient may not be able to keep NGT in or PEG tube without pulling either out and restraints may not be the best option for her. Patient`s daughter convinced that if she speaks to the patient over the telephone during swallow evaluation, she will be able to help explain to patient what is going on and patient may be able to pass swallow evaluation. Notified her that i will recommend staff to have her over the phone during swallow evaluation session. Patient`s bedside YON Rosario also explained to the daughter how the patient performed during swallow evaluation and clarified to the daughter that during their prior conversation RN was concerned about patient`s swallowing and that is why she called the daughter asking her how patient usually takes her pills because she was having a difficult time swallowing her pills. Patient`s daughter not agreeable to placement of NGT or PEG placement at this time. . Family/friend interactions Telephone conversation with patient`s daughter. . Advance Directives Health Care Surrogate: Copy in medical record Advance Directive Specifics Date completed: 03/27/17. . Health Care Surrogate(s): HCS: Bella Mena (daughter) Alternate HCS: Sherron Mena (son) . Objective Vital Signs Date Time Temp Pulse Resp B/P (MAP) Pulse Ox O2 Delivery O2 Flow Rate FiO2 09/26/17 09:55 91 21 09/26/17 08:00 97.4 71 18 143/83 (103) 92 09/26/17 05:36 97.7 71 16 149/65 (93) 93 09/26/17 00:33 96.9 76 16 137/67 (90) 94 09/25/17 20:26 96.9 80 16 138/80 (99) 92 09/25/17 20:18 Nasal Cannula 3.00 09/25/17 16:00 97.6 71 18 158/72 (100) 94 Intake & Output 09/26/17 09/26/17 07:00 19:00 Intake Total 350 ml Balance 350 ml IV Total 350 ml # Voids 6 # Bowel Movements 3 Physical Exam CONSTITUTIONAL/GENERAL: This is an elderly, thin frail female patient, in no apparent distress, mumbles a few words intermittently TUBES/LINES/DRAINS: PIV x 2 SKIN: No jaundice, rashes, or lesions. Ecchymoses on upper extremities. No wounds seen anteriorly. Skin temperature appropriate. Not diaphoretic. EYES: Pupils equal and round and reactive. Extraocular motions intact. No scleral icterus. No injection or drainage. Fundi not examined. ENT: Hard of hearing. Nose without bleeding or purulent drainage. CARDIOVASCULAR: Regular rate and rhythm without murmurs, gallops, or rubs. No JVD. Peripheral pulses symmetric. RESPIRATORY/CHEST: Symmetric, unlabored respirations. Lungs rhonchi to auscultation. Breath sounds equal bilaterally. No wheezes. GASTROINTESTINAL: Abdomen soft, non-tender, nondistended. No guarding. Bowel sounds present. MUSCULOSKELETAL: Extremities without clubbing, cyanosis, or edema. No mottling or clubbing. NEUROLOGICAL: Awake and alert. Oriented to person only and pleasantly confused. Moves all extremities to simple commands. PSYCHIATRIC:Unable to assess secondary to clinical condition. . Diagnostic Tests Laboratory Laboratory Tests Test 09/24/17 07:39 09/25/17 07:51 White Blood Count 14.8 TH/MM3 (4.0-11.0) 11.8 TH/MM3 (4.0-11.0) Red Blood Count 3.35 MIL/MM3 (4.00-5.30) 3.72 MIL/MM3 (4.00-5.30) Hemoglobin 11.1 GM/DL (11.6-15.3) 11.9 GM/DL (11.6-15.3) Hematocrit 31.8 % (35.0-46.0) 35.3 % (35.0-46.0) Mean Corpuscular Volume 95.0 FL (80.0-100.0) 94.9 FL (80.0-100.0) Mean Corpuscular Hemoglobin 33.2 PG (27.0-34.0) 32.0 PG (27.0-34.0) Mean Corpuscular Hemoglobin Concent 34.9 % (32.0-36.0) 33.8 % (32.0-36.0) Red Cell Distribution Width 14.1 % (11.6-17.2) 14.0 % (11.6-17.2) Platelet Count 313 TH/MM3 (150-450) 377 TH/MM3 (150-450) Mean Platelet Volume 8.0 FL (7.0-11.0) 7.7 FL (7.0-11.0) Neutrophils (%) (Auto) 83.5 % (16.0-70.0) 80.1 % (16.0-70.0) Lymphocytes (%) (Auto) 10.9 % (9.0-44.0) 13.0 % (9.0-44.0) Monocytes (%) (Auto) 4.2 % (0.0-8.0) 4.7 % (0.0-8.0) Eosinophils (%) (Auto) 1.0 % (0.0-4.0) 1.5 % (0.0-4.0) Basophils (%) (Auto) 0.4 % (0.0-2.0) 0.7 % (0.0-2.0) Neutrophils # (Auto) 12.4 TH/MM3 (1.8-7.7) 9.5 TH/MM3 (1.8-7.7) Lymphocytes # (Auto) 1.6 TH/MM3 (1.0-4.8) 1.5 TH/MM3 (1.0-4.8) Monocytes # (Auto) 0.6 TH/MM3 (0-0.9) 0.6 TH/MM3 (0-0.9) Eosinophils # (Auto) 0.2 TH/MM3 (0-0.4) 0.2 TH/MM3 (0-0.4) Basophils # (Auto) 0.1 TH/MM3 (0-0.2) 0.1 TH/MM3 (0-0.2) CBC Comment DIFF FINAL DIFF FINAL Differential Comment Blood Urea Nitrogen 21 MG/DL (7-18) 20 MG/DL (7-18) Creatinine 0.78 MG/DL (0.50-1.00) 0.69 MG/DL (0.50-1.00) Random Glucose 81 MG/DL (74-106) 81 MG/DL (74-106) Calcium Level 8.1 MG/DL (8.5-10.1) 8.1 MG/DL (8.5-10.1) Sodium Level 146 MEQ/L (136-145) 145 MEQ/L (136-145) Potassium Level 3.6 MEQ/L (3.5-5.1) 3.5 MEQ/L (3.5-5.1) Chloride Level 114 MEQ/L (98-107) 113 MEQ/L (98-107) Carbon Dioxide Level 19.4 MEQ/L (21.0-32.0) 18.9 MEQ/L (21.0-32.0) Anion Gap 13 MEQ/L (5-15) 13 MEQ/L (5-15) Estimat Glomerular Filtration Rate 70 ML/MIN (>89) 80 ML/MIN (>89) Result Diagram: 09/25/17 0751 09/25/17 0751 Assessment and Plan Disease Oriented Problem List: (1) Dementia (2) Pneumonia (3) Urinary tract infection (4) Sepsis Symptom Scale: (1) Confusion (2) Debility (3) Shortness of breath Pertinent Non-Medical Issues Psychosocial: Patient has lived in [place] most of her life, she is and has two adult children, her son Sherron lives in [place] and her daughter Bella lives in [place]. She worked for the [employer] in the [employer] for over 10 years. She has been living independently for many years up until this April, when she was found wandering by her apartment complex's management staff, at which time they relayed to her family they would not renew the lease as it was unsafe. Her daughter had a short time frame to arrange a stable living situation for her mother given her rapidly progressive dementia, at that time she was moved to a SNF. Family is hoping to potentially move the patient to a facility closer to their residences. Spiritual: [employer]. Legal: None known. Ethical issues impacting care: None known. . Important Contacts Bella Mena ([facility]) (daughter) [phone] Sherron Mena Alternate [facility] (son) [phone] . Prognosis Patient is an 86 year old female with a past medical history significant for dementia who was hospitalized for altered mental status, possible aspiration pneumonia, and UTI. Patient had been living independently, able to pay her own bills, go grocery shopping, make doctor appointments etc. up until April of this year at which point she was subsequently moved into a SNF. Due to her advanced age and per patient's family rapid decline in mentation secondary to dementia the patient is at an ongoing risk for complications and setbacks. . Code Status: No Code Plan * Legal decision maker: Patient is currently not capacitated to make informed medical decisions independently and will not regain capacity. Patient's daughter Bella Mena is the patient's documented HCS [phone], alternate HCS is patient's son Sherron Mena [phone]. * Goals: 09/26/17 Pending clinical course. Updated patient`s daughter over the telephone on patient`s medical status and notified her that patient has failed swallow evaluation today and discussed possibility of temporarily inserting an NGT for nutrition and hope that she will pass swallow evaluation. Patient`s daughter not agreeable to placement of NGT or PEG placement at this time. Family `s goal is to have patient treated and transferred back to SNF and then ultimately move patient closer to her daughter and son. [place] or [place]. . * CODE STATUS: DNR. * SYMPTOMS: --Confusion: Secondary to long standing history of dementia. Recommend ongoing reorientation. Patient not able to follow simple commands during swallow evaluation- high risk for aspiration. --Debility: Multifactorial, due to advanced age, dementia, etc. Patient would benefit from PT/OT when stable. --Shortness of breath: Patient currently breathing comfortably on 3L NC, duonebs q 4 hours PRN ordered. No recommendations at this time. Recommendations: Patient`s daughter convinced that if she speaks to the patient over the telephone during swallow evaluation, she will be able to help explain to patient what is going on and patient may be able to pass swallow evaluation. Recommending staff to have patient`s daughter over the phone during swallow evaluation session. * Palliative care will continue to follow during hospital course as condition evolves, to assist patient/decision-maker with understanding of medical conditions, weighing benefits/burdens of treatment options, for clarification of goals of treatment. Additionally will assist with any symptoms of palliative concern Lexy Cody Sep 26, 2017 12:17
[2017-09-26] MEDS: NS + KCL 20 MEQ INJ 1,000 ML IV SCH ×2 (16:24→22:04)
[2017-09-26] MEDS: DONEPEZIL HCL 5 MG TAB PO SCH (21:00)
[2017-09-26] MEDS: QUEtiapine FUMARATE 25 MG TAB PO SCH (21:00)
[2017-09-27] VITALS (8 sets, daily range): BP systolic 147–176; BP diastolic 77–97; PULSE 79–102; RESP 16–20; TEMP 96.1–99.2; O2SAT 92–97
[2017-09-27] MEDS: PIPERACIL-TAZO 4.5 GM PREMIX 100 ML IV SCH ×4 (00:26→18:20)
[2017-09-27 06:34] LABS: AUTOMATED NEUTROPHIL # 9.2 TH/MM3 (1.8-7.7); BASOPHIL # 0.1 TH/MM3 (0-0.2); BASOPHIL % 0.7 % (0.0-2.0); EOSINOPHIL # 0.3 TH/MM3 (0-0.4); EOSINOPHIL % 2.3 % (0.0-4.0); HEMATOCRIT 32.8 % (35.0-46.0); LYMPH % 16.5 % (9.0-44.0); MEAN CELL VOLUME 94.1 FL (80.0-100.0); MEAN CORPUSCULAR HEMOGLOBIN 32.5 PG (27.0-34.0); MEAN CORPUSCULAR HGB CONC 34.5 % (32.0-36.0); MONO % 5.8 % (0.0-8.0); NEUT % 74.7 % (16.0-70.0); PLATELET COUNT 397 TH/MM3 (150-450); RED BLOOD COUNT 3.49 MIL/MM3 (4.00-5.30); RED CELL DISTRIBUTION WIDTH 13.8 % (11.6-17.2); WHITE BLOOD COUNT 12.3 TH/MM3 (4.0-11.0)
[2017-09-27 06:47] LABS: BICARBONATE 17.9 MEQ/L (21.0-32.0); MAGNESIUM 2.2 MG/DL (1.5-2.5); POTASSIUM 3.4 MEQ/L (3.5-5.1)
[2017-09-27 07:00] LABS: HEMO FLAGS AUTO DIFF
[2017-09-27] MEDS: MEGESTROL ACETATE SUSP 400 MG/10 ML CUP PO SCH ×2 (09:00→21:00)
[2017-09-27] MEDS: POTASSIUM CHLORIDE 25 MEQ EFFERVESCENT TAB PO SCH (09:00)
[2017-09-27] MEDS: FUROSEMIDE 20 MG TAB PO SCH ×2 (09:00→21:00)
[2017-09-27 09:52] LABS: BANDS 1 % (0-6); BASOPHILS 1 % (0-2); EOSINOPHILS 5 % (0-4); METAMYELOCYTES 1 % (0-1); MYELOCYTES 1 % (0-0); NEUTROPHIL # MANUAL DIFF 9.3 TH/MM3 (1.8-7.7); PLATELET ESTIMATE SMEAR NORMAL (NORMAL); PLATELET MORPHOLOGY NORMAL (NORMAL); POLYS (SEG NEUTROPHILS) 73 % (16-70); WBC DIFF SAMPLE 100
[2017-09-27 09:53] LABS: SCAN/DIFF FINAL DIFF MANUAL; TOXIC GRANULATION 1+ (NORMAL)
[2017-09-27] MEDS: AZITHROMYCIN INJ 500 MG in SODIUM CHLOR 0.9% 250 ML INJ 250 ML IV SCH (10:14)
--- NOTE | 2017-09-27 15:24 | HHI.PR ---
Subjective Remarks Follow-up pneumonia, UTI, dementia. Patient is confused. She has no complaints. No events reported by nursing. Patient still not tolerating anything by mouth. Objective Vitals Vital Signs Date Time Temp Pulse Resp B/P (MAP) Pulse Ox O2 Delivery O2 Flow Rate FiO2 09/27/17 12:00 97.2 84 17 159/80 (106) 95 09/27/17 08:00 98.6 83 17 147/83 (104) 93 09/27/17 07:32 97 09/27/17 04:00 99.2 95 18 150/77 (101) 95 09/27/17 00:24 98.3 102 16 167/94 (118) 92 09/26/17 20:30 108 16 165/96 (119) 09/26/17 20:00 75 09/26/17 16:00 96.9 75 18 149/67 (94) 92 I/O 09/26/17 09/26/17 09/26/17 09/27/17 09/27/17 09/27/17 07:00 15:00 23:00 07:00 15:00 23:00 Intake Total 100 ml 0 ml 547 ml 100 ml Balance 100 ml 0 ml 547 ml 100 ml Intake Oral 0 ml IV Total 100 ml 547 ml 100 ml # Voids 6 5 3 # Bowel Movements 3 1 2 Result Diagram: 09/27/17 0525 09/27/17 0525 Imaging Last Impressions Chest X-Ray 09/23/17 0807 Signed Impressions: Service Date/Time: Saturday, September 23, 2017 08:15 - CONCLUSION: 1. Airspace consolidation in the right medial and left lower lung zones. Differential considerations include aspiration vs pneumonia given history of cough. Ramon Pires MD Objective Remarks General: Elderly female in no acute distress. Heart: Regular rate and rhythm. No murmur. Lungs: Clear to auscultation bilaterally. No wheezes, rales, or rhonchi. Breathing is nonlabored. Abdomen: Soft, nontender, nondistended. Extremities: No lower extremity edema. Psych: Alert, does not really answer questions today. Procedures None Urinary Catheter: No Vascular Central Line Catheter: No A/P Problem List: (1) Dementia ICD Code: F03.90 - Unspecified dementia without behavioral disturbance (2) Sepsis ICD Code: A41.9 - Sepsis, unspecified organism Status: Acute (3) Pneumonia ICD Code: J18.9 - Pneumonia, unspecified organism Status: Acute (4) Urinary tract infection ICD Code: N39.0 - Urinary tract infection, site not specified Status: Acute Assessment and Plan 1. Pneumonia, healthcare associated versus aspiration: Cover with Zosyn, azithromycin. Continue supplemental oxygen. Per speech therapy, keep NPO. 2. Chronic dementia: Continue home medications. 3. UTI: Continue antibiotics. Urine culture growing e coli. 4. Sepsis: Secondary to above. Monitor leukocytosis, fever. Tachycardia has improved. 5. DVT prophylaxis: SCDs, GEN montero. 6. Palliative care following 7. Poor oral intake: Appreciate speech therapy recommendations. Currently nothing by mouth. Patient is unable to take by mouth, will need supplemental nutrition, either TPN or tube feeds. Appreciate Palliative care recommendations. Patient's daughter, who is the healthcare surrogate, does not want the patient to have an NG tube or a PEG per discussion with palliative care. 8. CODE STATUS: DO NOT RESUSCITATE. Discharge Planning Pending further clinical improvement, plan return to SNF. Problem Qualifiers (1) Sepsis: Qualified Codes: A41.9 - Sepsis, unspecified organism (2) Pneumonia: Qualified Codes: J18.9 - Pneumonia, unspecified organism (3) Urinary tract infection: Qualified Codes: N30.00 - Acute cystitis without hematuria Curry Andrade MD Sep 27, 2017 15:24
[2017-09-27] MEDS: D5-NS + KCL 20 MEQ INJ 1,000 ML IV SCH (15:30)
[2017-09-27] MEDS: DONEPEZIL HCL 5 MG TAB PO SCH (21:00)
[2017-09-27] MEDS: QUEtiapine FUMARATE 25 MG TAB PO SCH (21:00)
[2017-09-28] VITALS (8 sets, daily range): BP systolic 148–177; BP diastolic 73–111; PULSE 76–106; RESP 18–20; TEMP 96–98.6; O2SAT 92–96
[2017-09-28] MEDS: PIPERACIL-TAZO 4.5 GM PREMIX 100 ML IV SCH ×4 (00:41→18:45)
[2017-09-28] MEDS: ENALAPRILAT 1.25 MG/ML VIAL IV PUSH PRN ×2 (01:11→17:03)
[2017-09-28 05:21] LABS: AUTOMATED NEUTROPHIL # 10.2 TH/MM3 (1.8-7.7); BASOPHIL # 0.1 TH/MM3 (0-0.2); BASOPHIL % 0.8 % (0.0-2.0); EOSINOPHIL # 0.4 TH/MM3 (0-0.4); EOSINOPHIL % 2.9 % (0.0-4.0); HEMATOCRIT 32.8 % (35.0-46.0); LYMPH % 14.5 % (9.0-44.0); LYMPHOCYTE # 1.9 TH/MM3 (1.0-4.8); MEAN CELL VOLUME 93.9 FL (80.0-100.0); MEAN CORPUSCULAR HEMOGLOBIN 32.2 PG (27.0-34.0); MEAN CORPUSCULAR HGB CONC 34.3 % (32.0-36.0); MONO % 5.1 % (0.0-8.0); NEUT % 76.7 % (16.0-70.0); PLATELET COUNT 392 TH/MM3 (150-450); RED BLOOD COUNT 3.49 MIL/MM3 (4.00-5.30); RED CELL DISTRIBUTION WIDTH 13.8 % (11.6-17.2); WHITE BLOOD COUNT 13.3 TH/MM3 (4.0-11.0)
[2017-09-28 05:25] LABS: HEMO FLAGS AUTO DIFF
[2017-09-28 06:00] LABS: BICARBONATE 19.1 MEQ/L (21.0-32.0)
[2017-09-28 06:05] LABS: POTASSIUM 2.9 MEQ/L (3.5-5.1)
[2017-09-28 06:46] LABS: EOSINOPHILS 1 % (0-4); MYELOCYTES 3 % (0-0); NEUTROPHIL # MANUAL DIFF 11.2 TH/MM3 (1.8-7.7); PLATELET ESTIMATE SMEAR NORMAL (NORMAL); PLATELET MORPHOLOGY NORMAL (NORMAL); POLYS (SEG NEUTROPHILS) 81 % (16-70); SCAN/DIFF FINAL DIFF MANUAL; WBC DIFF SAMPLE 100
[2017-09-28] MEDS: POTASSIUM CHLOR 20 MEQ PREMIX 100 ML IV SCH ×2 (07:08→15:07)
[2017-09-28] MEDS: FUROSEMIDE 20 MG TAB PO SCH ×2 (09:00→21:00)
[2017-09-28] MEDS: CHOLECALCIFEROL (VIT D3) 1000 UNIT TAB PO SCH (09:00)
[2017-09-28] MEDS: LORATADINE 10 MG TAB PO SCH (09:00)
[2017-09-28] MEDS: MEGESTROL ACETATE SUSP 400 MG/10 ML CUP PO SCH ×2 (09:00→21:00)
[2017-09-28] MEDS: POTASSIUM CHLORIDE 25 MEQ EFFERVESCENT TAB PO SCH (09:00)
[2017-09-28] MEDS: AZITHROMYCIN INJ 500 MG in SODIUM CHLOR 0.9% 250 ML INJ 250 ML IV SCH (09:31)
[2017-09-28] MEDS: D5-NS + KCL 20 MEQ INJ 1,000 ML IV SCH (09:37)
--- NOTE | 2017-09-28 09:51 | HHI.PR ---
Subjective Remarks Follow-up pneumonia, UTI, dementia. Patient remains confused and does not answer questions appropriately No events reported overnight. Objective Vitals Vital Signs Date Time Temp Pulse Resp B/P (MAP) Pulse Ox O2 Delivery O2 Flow Rate FiO2 09/28/17 08:00 96.7 87 18 150/78 (102) 94 09/28/17 05:43 97.5 77 20 148/73 (98) 96 09/28/17 03:09 79 09/28/17 00:00 96.3 76 20 171/85 (113) 96 09/27/17 20:00 97.7 79 20 176/97 (123) 94 09/27/17 18:01 94 21 09/27/17 16:00 96.1 86 17 154/78 (103) 94 09/27/17 12:00 97.2 84 17 159/80 (106) 95 I/O 09/27/17 09/27/17 09/27/17 09/28/17 09/28/17 09/28/17 07:00 15:00 23:00 07:00 15:00 23:00 Intake Total 547 ml 200 ml 680 ml 100 ml Balance 547 ml 200 ml 680 ml 100 ml Intake Oral 0 ml IV Total 547 ml 200 ml 680 ml 100 ml # Voids 3 6 3 # Bowel Movements 2 1 Result Diagram: 09/28/1744409/28/17444 Imaging Last Impressions Chest X-Ray 09/23/17 0807 Signed Impressions: Service Date/Time: Saturday, September 23, 2017 08:15 - CONCLUSION: 1. Airspace consolidation in the right medial and left lower lung zones. Differential considerations include aspiration vs pneumonia given history of cough. Ramon Pires MD Objective Remarks General: Elderly female in no acute distress. Heart: Regular rate and rhythm. No murmur. Lungs: Bilateral rhonchi. Breathing is nonlabored. Abdomen: Soft, nontender, nondistended. Extremities: No lower extremity edema. Psych: Alert, confused. Procedures None Urinary Catheter: No Vascular Central Line Catheter: No A/P Problem List: (1) Dementia ICD Code: F03.90 - Unspecified dementia without behavioral disturbance (2) Sepsis ICD Code: A41.9 - Sepsis, unspecified organism Status: Acute (3) Pneumonia ICD Code: J18.9 - Pneumonia, unspecified organism Status: Acute (4) Urinary tract infection ICD Code: N39.0 - Urinary tract infection, site not specified Status: Acute Assessment and Plan 1. Pneumonia, healthcare associated versus aspiration: Continue Zosyn, azithromycin. Continue supplemental oxygen. Per speech therapy, keep NPO. 2. Chronic dementia: Continue home medications. 3. UTI: Continue antibiotics. Urine culture growing e coli. 4. Sepsis: Secondary to above. Monitor leukocytosis, fever. Tachycardia has improved. 5. DVT prophylaxis: Indigo, GEN montero. 6. Palliative care following 7. Poor oral intake: Appreciate speech therapy recommendations. Currently nothing by mouth. Patient is unable to take by mouth, will need supplemental nutrition, either TPN or tube feeds. Appreciate Palliative care recommendations. Patient's daughter, who is the healthcare surrogate, does not want the patient to have an NG tube or a PEG per discussion with palliative care. Consult laundrette owner. 8. CODE STATUS: DO NOT RESUSCITATE. Discharge Planning Pending further clinical improvement, plan return to SNF. Problem Qualifiers (1) Sepsis: Qualified Codes: A41.9 - Sepsis, unspecified organism (2) Pneumonia: Qualified Codes: J18.9 - Pneumonia, unspecified organism (3) Urinary tract infection: Qualified Codes: N30.00 - Acute cystitis without hematuria Curry Andrade MD Sep 28, 2017 09:51
[2017-09-28] MEDS ORDERED: RESP: ALBUTEROL 2.5 MG/3 ML NEB (PRN) NEB (10:00)
[2017-09-28] MEDS: RESP: ALBUTEROL 2.5 MG/IPRATROPIUM 0.5 MG NEB (SCH) INH ×3 (16:00→20:00)
[2017-09-28] MEDS: QUEtiapine FUMARATE 25 MG TAB PO SCH (21:00)
[2017-09-28] MEDS: DONEPEZIL HCL 5 MG TAB PO SCH (21:00)
[2017-09-29] VITALS (8 sets, daily range): BP systolic 108–139; BP diastolic 59–72; PULSE 69–93; RESP 16–20; TEMP 96.1–98.8; O2SAT 93–97
[2017-09-29] MEDS: PIPERACIL-TAZO 4.5 GM PREMIX 100 ML IV SCH ×4 (01:05→21:15)
[2017-09-29] MEDS: D5-NS + KCL 20 MEQ INJ 1,000 ML IV SCH (05:36)
[2017-09-29] MEDS: LORATADINE 10 MG TAB PO SCH (07:34)
[2017-09-29] MEDS: POTASSIUM CHLORIDE 25 MEQ EFFERVESCENT TAB PO SCH (07:34)
[2017-09-29] MEDS: CHOLECALCIFEROL (VIT D3) 1000 UNIT TAB PO SCH (07:35)
[2017-09-29] MEDS: MEGESTROL ACETATE SUSP 400 MG/10 ML CUP PO SCH ×2 (07:35→21:00)
[2017-09-29] MEDS: FUROSEMIDE 20 MG TAB PO SCH ×2 (07:35→21:00)
[2017-09-29 07:42] LABS: AUTOMATED NEUTROPHIL # 9.2 TH/MM3 (1.8-7.7); BASOPHIL # 0.1 TH/MM3 (0-0.2); BASOPHIL % 0.7 % (0.0-2.0); EOSINOPHIL # 0.3 TH/MM3 (0-0.4); EOSINOPHIL % 2.7 % (0.0-4.0); HEMATOCRIT 30.5 % (35.0-46.0); LYMPHOCYTE # 1.8 TH/MM3 (1.0-4.8); MEAN CELL VOLUME 93.3 FL (80.0-100.0); MEAN CORPUSCULAR HEMOGLOBIN 31.3 PG (27.0-34.0); MEAN CORPUSCULAR HGB CONC 33.6 % (32.0-36.0); MONO % 5.4 % (0.0-8.0); NEUT % 76.2 % (16.0-70.0); PLATELET COUNT 376 TH/MM3 (150-450); RED BLOOD COUNT 3.27 MIL/MM3 (4.00-5.30); RED CELL DISTRIBUTION WIDTH 14.1 % (11.6-17.2); WHITE BLOOD COUNT 12.1 TH/MM3 (4.0-11.0)
[2017-09-29 07:47] LABS: HEMO FLAGS AUTO DIFF
[2017-09-29] MEDS: RESP: ALBUTEROL 2.5 MG/IPRATROPIUM 0.5 MG NEB (SCH) INH ×4 (07:58→20:54)
[2017-09-29 08:17] LABS: ALKALINE PHOSPHATASE 39 U/L (45-117); ALT (GPT) 21 U/L (10-53); ANION GAP 11 MEQ/L (5-15); AST (GOT) 30 U/L (15-37); BICARBONATE 23.4 MEQ/L (21.0-32.0); BLOOD UREA NITROGEN 6 MG/DL (7-18); CHLORIDE 109 MEQ/L (98-107); GLOMERULAR FILTRATION RATE 88 ML/MIN (>89); MAGNESIUM 1.9 MG/DL (1.5-2.5); SODIUM (NA) 143 MEQ/L (136-145); TOTAL BILIRUBIN ADULT 0.5 MG/DL (0.2-1.0)
[2017-09-29 08:23] LABS: POTASSIUM 2.7 MEQ/L (3.5-5.1)
[2017-09-29] MEDS: AZITHROMYCIN INJ 500 MG in SODIUM CHLOR 0.9% 250 ML INJ 250 ML IV SCH (09:24)
[2017-09-29 09:32] LABS: SCAN/DIFF AUTO DIFF CONFIRMED
--- NOTE | 2017-09-29 11:22 | HHI.PR ---
Subjective Remarks Follow up pneumonia, UTI, dementia. Patient still nothing by mouth. She is more lethargic today. Per nursing, no events overnight. Objective Vitals Vital Signs Date Time Temp Pulse Resp B/P (MAP) Pulse Ox O2 Delivery O2 Flow Rate FiO2 09/29/17 08:01 94 09/29/17 08:00 97.4 71 18 139/61 (87) 94 09/29/17 04:00 98.8 69 18 118/61 (80) 94 09/29/17 00:00 98.6 84 20 137/60 (85) 94 09/28/17 20:00 98.6 94 18 167/78 (107) 93 09/28/17 19:04 92 09/28/17 16:00 97.1 106 18 177/111 (133) 92 09/28/17 12:00 96.0 87 18 160/76 (104) 95 I/O 09/28/17 09/28/17 09/28/17 09/29/17 09/29/17 09/29/17 07:00 15:00 23:00 07:00 15:00 23:00 Intake Total 100 ml 350 ml 310 ml 1036 ml Balance 100 ml 350 ml 310 ml 1036 ml Intake Oral 0 ml 0 ml IV Total 100 ml 350 ml 310 ml 1036 ml # Voids 3 3 3 # Bowel Movements 1 1 1 Result Diagram: 09/29/17 0700 09/29/17 0700 Imaging Last Impressions Chest X-Ray 09/23/17 0807 Signed Impressions: Service Date/Time: Saturday, September 23, 2017 08:15 - CONCLUSION: 1. Airspace consolidation in the right medial and left lower lung zones. Differential considerations include aspiration vs pneumonia given history of cough. Ramon Pires MD Objective Remarks General: Elderly female in no acute distress. Heart: Regular rate and rhythm. No murmur. Lungs: Bilateral rhonchi. Breathing is nonlabored. Abdomen: Soft, nontender, nondistended. Extremities: No lower extremity edema. Psych: Lethargic, difficult to arouse. Procedures None Urinary Catheter: No Vascular Central Line Catheter: No A/P Problem List: (1) Dementia ICD Code: F03.90 - Unspecified dementia without behavioral disturbance (2) Sepsis ICD Code: A41.9 - Sepsis, unspecified organism Status: Acute (3) Pneumonia ICD Code: J18.9 - Pneumonia, unspecified organism Status: Acute (4) Urinary tract infection ICD Code: N39.0 - Urinary tract infection, site not specified Status: Acute Assessment and Plan 1. Pneumonia, healthcare associated versus aspiration: Continue Zosyn, azithromycin. Continue supplemental oxygen. Per speech therapy, keep NPO. 2. Chronic dementia: Continue home medications. 3. UTI: Continue antibiotics. Urine culture growing e coli. 4. Sepsis: Secondary to above. Monitor leukocytosis, fever. Tachycardia has improved. 5. DVT prophylaxis: SCDs, GEN montero. 6. Palliative care following 7. Poor oral intake: Appreciate speech therapy recommendations. Currently nothing by mouth. Patient is unable to take by mouth, will need supplemental nutrition, either TPN or tube feeds. Appreciate Palliative care recommendations. Patient's daughter, who is the healthcare surrogate, does not want the patient to have an NG tube or a PEG per discussion with palliative care. Consult pharmacy informatics specialist. 8. Hypokalemia: Supplement potassium. 9. CODE STATUS: DO NOT RESUSCITATE. Discharge Planning Pending further clinical improvement, plan return to SNF. Problem Qualifiers (1) Sepsis: Qualified Codes: A41.9 - Sepsis, unspecified organism (2) Pneumonia: Qualified Codes: J18.9 - Pneumonia, unspecified organism (3) Urinary tract infection: Qualified Codes: N30.00 - Acute cystitis without hematuria Curry Andrade MD Sep 29, 2017 11:22
[2017-09-29] MEDS: POTASSIUM CHLOR 20 MEQ PREMIX 100 ML IV SCH ×2 (11:23→17:12)
--- NOTE | 2017-09-29 17:05 | HHI.HCPN ---
Reason for visit a. To assist with evaluation and management of symptoms including: shortness of breath, debility, confusion b. To assist medical decision maker(s) with: better understanding of current medical conditions; weighing benefits/burdens of medical treatment options; making medical treatment decisions. . Subjective/Interval History Patient seen in her room in bed , patient is very lethargic, requires stimulation to arouse just very short period of time. Patient is non-verbal today. Speech therapy unable to assess patient due to lethargy. Patient remains NPO. Patient is afebrile. O2 saturation low 90s on 2L NC. Hemodynamically stable. Laboratory workup revealing WBC 12.1, hemoglobin 10.2, hematocrit 30.5, platelet count 376, sodium 143, potassium 2.7, BUN/creatinine 6/0.64, random glucose 128, calcium 7.6, magnesium 1.9, AST 30, ALT 21, alkaline phosphatase 89 , total protein 5.3, and albumin 2.1. Telephone conversation with patient's daughter, Hanh Mena who is patient's healthcare surrogate. Updated her on current patient's medical status and patient's lethargy. Discussed high risk of aspirating given that patient is now lethargic. Patient's daughter reinforced that she would not want a PEG tube or NG tube placed. Discussed implications of not eating for days, daughter verbalized understanding. Introduced hospice philosophy and benefits. Patient' s daughter stated that she would want patient to be comfortable at this time and requested hospice consultation. . Family/friend interactions Telephone conversation with patient's daughter Hanh Mena. . Advance Directives Health Care Surrogate: Copy in medical record Advance Directive Specifics Date completed: 03/27/17. . Health Care Surrogate(s): HCS: Hanh Rajesh (daughter) Alternate HCS: Sherron Rajesh (son) . Objective Vital Signs Date Time Temp Pulse Resp B/P (MAP) Pulse Ox O2 Delivery O2 Flow Rate FiO2 09/29/17 11:44 98.8 86 16 108/59 (75) 94 09/29/17 08:01 94 09/29/17 08:00 97.4 71 18 139/61 (87) 94 09/29/17 04:00 98.8 69 18 118/61 (80) 94 09/29/17 00:00 98.6 84 20 137/60 (85) 94 09/28/17 20:00 98.6 94 18 167/78 (107) 93 09/28/17 19:04 92 Intake & Output 09/29/17 09/29/17 07:00 19:00 Intake Total 1036 ml Balance 1036 ml Intake Oral 0 ml IV Total 1036 ml # Voids 3 # Bowel Movements 1 Physical Exam CONSTITUTIONAL/GENERAL: This is an elderly, thin frail female patient, very lethargic today TUBES/LINES/DRAINS: PIV x 2 SKIN: No jaundice, rashes, or lesions. Ecchymoses on upper extremities. No wounds seen anteriorly. Skin temperature appropriate. Not diaphoretic. EYES: Pupils equal and round and reactive. Extraocular motions intact. No scleral icterus. No injection or drainage. Fundi not examined. ENT: Hard of hearing. Nose without bleeding or purulent drainage. CARDIOVASCULAR: Regular rate and rhythm without murmurs, gallops, or rubs. No JVD. Peripheral pulses symmetric. RESPIRATORY/CHEST: Symmetric, unlabored respirations. Lungs rhonchi to auscultation. Breath sounds equal bilaterally. No wheezes. GASTROINTESTINAL: Abdomen soft, non-tender, nondistended. No guarding. Hypoactive bowel sounds. MUSCULOSKELETAL: Extremities without clubbing, cyanosis, or edema. No mottling or clubbing. NEUROLOGICAL: Lethargic. Nonverbal today. Briefly arouses to noxious stimulation. Did not follow commands today. PSYCHIATRIC:Unable to assess secondary to clinical condition. . Diagnostic Tests Laboratory Laboratory Tests Test 09/27/17 05:25 09/28/17 04:45 09/29/17 07:00 White Blood Count 12.3 TH/MM3 (4.0-11.0) 13.3 TH/MM3 (4.0-11.0) 12.1 TH/MM3 (4.0-11.0) Red Blood Count 3.49 MIL/MM3 (4.00-5.30) 3.49 MIL/MM3 (4.00-5.30) 3.27 MIL/MM3 (4.00-5.30) Hemoglobin 11.3 GM/DL (11.6-15.3) 11.3 GM/DL (11.6-15.3) 10.2 GM/DL (11.6-15.3) Hematocrit 32.8 % (35.0-46.0) 32.8 % (35.0-46.0) 30.5 % (35.0-46.0) Mean Corpuscular Volume 94.1 FL (80.0-100.0) 93.9 FL (80.0-100.0) 93.3 FL (80.0-100.0) Mean Corpuscular Hemoglobin 32.5 PG (27.0-34.0) 32.2 PG (27.0-34.0) 31.3 PG (27.0-34.0) Mean Corpuscular Hemoglobin Concent 34.5 % (32.0-36.0) 34.3 % (32.0-36.0) 33.6 % (32.0-36.0) Red Cell Distribution Width 13.8 % (11.6-17.2) 13.8 % (11.6-17.2) 14.1 % (11.6-17.2) Platelet Count 397 TH/MM3 (150-450) 392 TH/MM3 (150-450) 376 TH/MM3 (150-450) Mean Platelet Volume 7.7 FL (7.0-11.0) 7.8 FL (7.0-11.0) 7.6 FL (7.0-11.0) Neutrophils (%) (Auto) 74.7 % (16.0-70.0) 76.7 % (16.0-70.0) 76.2 % (16.0-70.0) Lymphocytes (%) (Auto) 16.5 % (9.0-44.0) 14.5 % (9.0-44.0) 15.0 % (9.0-44.0) Monocytes (%) (Auto) 5.8 % (0.0-8.0) 5.1 % (0.0-8.0) 5.4 % (0.0-8.0) Eosinophils (%) (Auto) 2.3 % (0.0-4.0) 2.9 % (0.0-4.0) 2.7 % (0.0-4.0) Basophils (%) (Auto) 0.7 % (0.0-2.0) 0.8 % (0.0-2.0) 0.7 % (0.0-2.0) Neutrophils # (Auto) 9.2 TH/MM3 (1.8-7.7) 10.2 TH/MM3 (1.8-7.7) 9.2 TH/MM3 (1.8-7.7) Lymphocytes # (Auto) 2.0 TH/MM3 (1.0-4.8) 1.9 TH/MM3 (1.0-4.8) 1.8 TH/MM3 (1.0-4.8) Monocytes # (Auto) 0.7 TH/MM3 (0-0.9) 0.7 TH/MM3 (0-0.9) 0.7 TH/MM3 (0-0.9) Eosinophils # (Auto) 0.3 TH/MM3 (0-0.4) 0.4 TH/MM3 (0-0.4) 0.3 TH/MM3 (0-0.4) Basophils # (Auto) 0.1 TH/MM3 (0-0.2) 0.1 TH/MM3 (0-0.2) 0.1 TH/MM3 (0-0.2) CBC Comment AUTO DIFF AUTO DIFF AUTO DIFF Differential Total Cells Counted 100 100 Neutrophils % (Manual) 73 % (16-70) 81 % (16-70) Band Neutrophils % 1 % (0-6) Lymphocytes % 14 % (9-44) 13 % (9-44) Monocytes % 4 % (0-8) 2 % (0-8) Eosinophils % 5 % (0-4) 1 % (0-4) Basophils % 1 % (0-2) Neutrophils # (Manual) 9.3 TH/MM3 (1.8-7.7) 11.2 TH/MM3 (1.8-7.7) Metamyelocytes 1 % (0-1) Myelocytes 1 % (0-0) 3 % (0-0) Differential Comment FINAL DIFF MANUAL FINAL DIFF MANUAL AUTO DIFF CONFIRMED Toxic Granulation 1+ (NORMAL) Platelet Estimate NORMAL (NORMAL) NORMAL (NORMAL) Platelet Morphology Comment NORMAL (NORMAL) NORMAL (NORMAL) Red Cell Morphology Comment NORMAL (NORMAL) NORMAL (NORMAL) Blood Urea Nitrogen 13 MG/DL (7-18) 9 MG/DL (7-18) 6 MG/DL (7-18) Creatinine 0.71 MG/DL (0.50-1.00) 0.53 MG/DL (0.50-1.00) 0.64 MG/DL (0.50-1.00) Random Glucose 72 MG/DL (74-106) 67 MG/DL (74-106) 128 MG/DL (74-106) Calcium Level 8.0 MG/DL (8.5-10.1) 8.0 MG/DL (8.5-10.1) 7.6 MG/DL (8.5-10.1) Magnesium Level 2.2 MG/DL (1.5-2.5) 1.9 MG/DL (1.5-2.5) Sodium Level 145 MEQ/L (136-145) 142 MEQ/L (136-145) 143 MEQ/L (136-145) Potassium Level 3.4 MEQ/L (3.5-5.1) 2.9 MEQ/L (3.5-5.1) 2.7 MEQ/L (3.5-5.1) Chloride Level 113 MEQ/L (98-107) 110 MEQ/L (98-107) 109 MEQ/L (98-107) Carbon Dioxide Level 17.9 MEQ/L (21.0-32.0) 19.1 MEQ/L (21.0-32.0) 23.4 MEQ/L (21.0-32.0) Anion Gap 14 MEQ/L (5-15) 13 MEQ/L (5-15) 11 MEQ/L (5-15) Estimat Glomerular Filtration Rate 78 ML/MIN (>89) 109 ML/MIN (>89) 88 ML/MIN (>89) Total Protein 5.3 GM/DL (6.4-8.2) Albumin 2.1 GM/DL (3.4-5.0) Alkaline Phosphatase 39 U/L (45-117) Aspartate Amino Transf (AST/SGOT) 30 U/L (15-37) Alanine Aminotransferase (ALT/SGPT) 21 U/L (10-53) Total Bilirubin 0.5 MG/DL (0.2-1.0) Result Diagram: 09/29/17 0700 09/29/17 0700 Assessment and Plan Disease Oriented Problem List: (1) Dementia (2) Pneumonia (3) Urinary tract infection (4) Sepsis Symptom Scale: (1) Confusion (2) Debility (3) Shortness of breath Pertinent Non-Medical Issues Psychosocial: Patient has lived in [place] most of her life, she is and has two adult children, her son Sherron lives in [place] and her daughter Hanh lives in [place]. She worked for the [employer] in the [employer] for over 10 years. She has been living independently for many years up until this April, when she was found wandering by her apartment complex's management staff, at which time they relayed to her family they would not renew the lease as it was unsafe. Her daughter had a short time frame to arrange a stable living situation for her mother given her rapidly progressive dementia, at that time she was moved to a SNF. Family is hoping to potentially move the patient to a facility closer to their residences. Spiritual: Mandaen. Legal: None known. Ethical issues impacting care: None known. . Important Contacts Hanh Mena ([facility]) (daughter) [phone] [email or web address] Sherron Mena Alternate [facility] (son) [phone] . Prognosis Patient is an 86 year old female with a past medical history significant for dementia who was hospitalized for altered mental status, possible aspiration pneumonia, and UTI. Patient had been living independently, able to pay her own bills, go grocery shopping, make doctor appointments etc. up until April of this year at which point she was subsequently moved into a SNF. Due to her advanced age and per patient's family rapid decline in mentation secondary to dementia the patient is at an ongoing risk for complications and setbacks. . Code Status: No Code Plan PLAN * Legal decision maker: Patient is currently not capacitated to make informed medical decisions independently and will not regain capacity. Patient's daughter Hanh Mena is the patient's documented HCS [phone], alternate HCS is patient's son Sherron Mena [phone]. * Goals: 09/29/17 patient's daughter Hanh Mena requested hospice consultation today. Patient's daughter reinforced that she would not want a PEG tube or NG tube placed. Discussed implications of not eating for days, daughter verbalized understanding. Introduced hospice philosophy and benefits. Patient's daughter stated that she would want patient to be comfortable at this time and requested hospice consultation. . * CODE STATUS: DNR/DNI * SYMPTOMS: --Confusion: Secondary to long standing history of dementia. Recommend ongoing reorientation. Patient not able to follow simple commands during swallow evaluation- high risk for aspiration. Patient is very lethargic today, nonverbal. --Debility: Multifactorial, due to advanced age, dementia, etc. Patient would benefit from PT/OT when stable. Patient is fairly lethargic today, unable to participate in any therapy due to lethargy. --Shortness of breath: Patient currently breathing comfortably on 2L NC, duonebs q 4 hours PRN ordered. No recommendations at this time. * Palliative care will continue to follow during hospital course as condition evolves, to assist patient/decision-maker with understanding of medical conditions, weighing benefits/burdens of treatment options, for clarification of goals of treatment. Additionally will assist with any symptoms of palliative concern Attestation To help prompt me to consider important information that might be impacting today's encounter and assessment, information from prior notes written by myself or my colleagues may have been "brought forward" into today's note. My signature on this note, however, is an attestation that I personally performed the exam, history, and/or decision-making noted today, and, unless otherwise indicated, the interactions with patient, family, and staff as well as the review of records all occurred today. I also attest that the listed assessment and stated plan reflect my best clinical judgment today based on the combination of historical information, prior notes, and today's exam/ interactions. When time spent is documented, it refers only to time spent today by the signer, or if indicated, combined time spent today by collaborating physician/nurse practitioner. . Lexy Cody Sep 29, 2017 17:05
[2017-09-29] MEDS: DONEPEZIL HCL 5 MG TAB PO SCH (21:00)
[2017-09-29] MEDS: QUEtiapine FUMARATE 25 MG TAB PO SCH (21:00)
[2017-09-30] VITALS (10 sets, daily range): BP systolic 127–174; BP diastolic 61–79; PULSE 82–108; RESP 17–20; TEMP 96.2–98.5; O2SAT 92–96
[2017-09-30] MEDS: PIPERACIL-TAZO 4.5 GM PREMIX 100 ML IV SCH ×3 (01:26→13:59)
[2017-09-30] MEDS: D5-NS + KCL 20 MEQ INJ 1,000 ML IV SCH ×2 (04:46→20:54)
[2017-09-30] MEDS: LORATADINE 10 MG TAB PO SCH (07:14)
[2017-09-30] MEDS: MEGESTROL ACETATE SUSP 400 MG/10 ML CUP PO SCH ×2 (07:14→20:57)
[2017-09-30] MEDS: FUROSEMIDE 20 MG TAB PO SCH ×2 (07:14→20:52)
[2017-09-30] MEDS: POTASSIUM CHLORIDE 25 MEQ EFFERVESCENT TAB PO SCH (07:14)
[2017-09-30] MEDS: CHOLECALCIFEROL (VIT D3) 1000 UNIT TAB PO SCH (07:14)
[2017-09-30 08:32] LABS: AUTOMATED NEUTROPHIL # 10.8 TH/MM3 (1.8-7.7); BASOPHIL # 0.1 TH/MM3 (0-0.2); BASOPHIL % 0.6 % (0.0-2.0); EOSINOPHIL # 0.4 TH/MM3 (0-0.4); EOSINOPHIL % 2.9 % (0.0-4.0); HEMATOCRIT 34.8 % (35.0-46.0); LYMPH % 15.2 % (9.0-44.0); LYMPHOCYTE # 2.2 TH/MM3 (1.0-4.8); MEAN CELL VOLUME 94.4 FL (80.0-100.0); MEAN CORPUSCULAR HEMOGLOBIN 31.3 PG (27.0-34.0); MEAN CORPUSCULAR HGB CONC 33.2 % (32.0-36.0); MONO % 5.5 % (0.0-8.0); NEUT % 75.8 % (16.0-70.0); PLATELET COUNT 414 TH/MM3 (150-450); RED BLOOD COUNT 3.69 MIL/MM3 (4.00-5.30); RED CELL DISTRIBUTION WIDTH 14.3 % (11.6-17.2); WHITE BLOOD COUNT 14.2 TH/MM3 (4.0-11.0)
[2017-09-30 08:36] LABS: HEMO FLAGS AUTO DIFF
[2017-09-30] MEDS: AZITHROMYCIN INJ 500 MG in SODIUM CHLOR 0.9% 250 ML INJ 250 ML IV SCH (08:41)
[2017-09-30 09:02] LABS: BICARBONATE 21.8 MEQ/L (21.0-32.0)
[2017-09-30] MEDS: RESP: ALBUTEROL 2.5 MG/IPRATROPIUM 0.5 MG NEB (SCH) INH ×5 (09:20→22:39)
[2017-09-30 09:21] LABS: POTASSIUM 3.1 MEQ/L (3.5-5.1)
[2017-09-30 10:15] LABS: BANDS 3 % (0-6); BASOPHILS 1 % (0-2); EOSINOPHILS 5 % (0-4); METAMYELOCYTES 1 % (0-1); MYELOCYTES 1 % (0-0); NEUTROPHIL # MANUAL DIFF 10.8 TH/MM3 (1.8-7.7); POLYS (SEG NEUTROPHILS) 71 % (16-70); WBC DIFF SAMPLE 100
[2017-09-30 10:16] LABS: PLATELET ESTIMATE SMEAR NORMAL (NORMAL); PLATELET MORPHOLOGY NORMAL (NORMAL); SCAN/DIFF FINAL DIFF MANUAL
[2017-09-30] MEDS ORDERED: POTASSIUM CHLORIDE 25 MEQ EFFERVESCENT TAB PO ONE (11:15)
--- NOTE | 2017-09-30 11:15 | HHI.PR ---
Subjective Remarks Follow-up pneumonia, UTI, dementia. Patient is alert, but does not answer questions. Per nursing, no acute issues overnight. She apparently did better with speech therapy today, tolerating sips of liquid and pured diet. Objective Vitals Vital Signs Date Time Temp Pulse Resp B/P (MAP) Pulse Ox O2 Delivery O2 Flow Rate FiO2 09/30/17 09:22 96 Nasal Cannula 2.00 09/30/17 07:52 97.9 87 18 146/68 (94) 93 09/30/17 04:53 82 09/30/17 04:46 96.2 106 18 152/79 (103) 94 09/30/17 00:00 97.0 107 18 140/66 (90) 96 09/29/17 20:55 93 Nasal Cannula 2.00 09/29/17 20:00 96.1 87 19 131/72 (91) 97 09/29/17 16:00 98.2 93 20 134/64 (87) 94 09/29/17 11:44 98.8 86 16 108/59 (75) 94 I/O 09/29/17 09/29/17 09/29/17 09/30/17 09/30/17 09/30/17 07:00 15:00 23:00 07:00 15:00 23:00 Intake Total 1036 ml 300 ml 1046 ml Balance 1036 ml 300 ml 1046 ml Intake Oral 0 ml 0 ml IV Total 1036 ml 300 ml 1046 ml # Voids 3 4 3 # Bowel Movements 1 0 Result Diagram: 09/30/17 0716 09/30/17 0716 Imaging Last Impressions Chest X-Ray 09/23/17 0807 Signed Impressions: Service Date/Time: Saturday, September 23, 2017 08:15 - CONCLUSION: 1. Airspace consolidation in the right medial and left lower lung zones. Differential considerations include aspiration vs pneumonia given history of cough. Ramon Pires MD Objective Remarks General: Elderly female in no acute distress. Heart: Regular rate and rhythm. No murmur. Lungs: Bilateral rhonchi. Breathing is nonlabored. Abdomen: Soft, nontender, nondistended. Extremities: No lower extremity edema. Psych: Alert, but does not answer questions. Procedures None Urinary Catheter: No Vascular Central Line Catheter: No A/P Problem List: (1) Dementia ICD Code: F03.90 - Unspecified dementia without behavioral disturbance (2) Sepsis ICD Code: A41.9 - Sepsis, unspecified organism Status: Acute (3) Pneumonia ICD Code: J18.9 - Pneumonia, unspecified organism Status: Acute (4) Urinary tract infection ICD Code: N39.0 - Urinary tract infection, site not specified Status: Acute Assessment and Plan 1. Pneumonia, healthcare associated versus aspiration: Continue Zosyn, azithromycin. Continue supplemental oxygen. Per speech therapy, keep NPO. 2. Chronic dementia: Continue home medications. 3. UTI: Continue antibiotics. Urine culture growing e coli. 4. Sepsis: Secondary to above. Monitor leukocytosis, fever. Tachycardia has improved. 5. DVT prophylaxis: GEN Sood. 6. Palliative care following. Hospice consulted. Patient's family has requested hospice care. We are waiting consents to be signed and decision to be made regarding hospice at snf facility versus care center. 7. Poor oral intake: Appreciate speech therapy recommendations. Diet advanced today to pure with thin liquids. Appreciate Palliative care recommendations. Patient's daughter, who is the healthcare surrogate, does not want the patient to have an NG tube or a PEG per discussion with palliative care. Appreciate dietary recommendations. 8. Hypokalemia: Supplement potassium. 9. CODE STATUS: DO NOT RESUSCITATE. Discharge Planning Pending further recommendations from hospice. Plan discharge soon under hospice care to snf facility versus care center. Problem Qualifiers (1) Sepsis: Qualified Codes: A41.9 - Sepsis, unspecified organism (2) Pneumonia: Qualified Codes: J18.9 - Pneumonia, unspecified organism (3) Urinary tract infection: Qualified Codes: N30.00 - Acute cystitis without hematuria Curry Andrade MD Sep 30, 2017 11:15
--- NOTE | 2017-09-30 13:23 | HHI.HCPN ---
Reason for visit a. To assist with evaluation and management of symptoms including: shortness of breath, debility, confusion b. To assist medical decision maker(s) with: better understanding of current medical conditions; weighing benefits/burdens of medical treatment options; making medical treatment decisions. . Subjective/Interval History Patient seen today for follow up, sitting up right in bed, attempting to feed herself. Patient is awake and alert, she mumbles a few words, repeat speech evaluation was completed today, pureed diet with thin liquids recommended. Assisted patient with eating during visit today, during this time she ate 100% of an ice cream cup. Patent has remained afebrile, hemodynamically stable, still with persistent leukocytosis, WBCs 14.2 today. . Family/friend interactions Telephone conference with patient's daughter Bella Mena, provided update, discussed Hospice, she stated she is in the process of filling out Hospice paperwork, she plans on returning it today as well as coming to [place] to visit her mother within the next week, by Friday the latest. Advance Directives Health Care Surrogate: Copy in medical record Advance Directive Specifics Date completed: 03/27/17. . Health Care Surrogate(s): HCS: Bella Mena (daughter) Alternate HCS: Sherron Mena (son) . Objective Vital Signs Date Time Temp Pulse Resp B/P (MAP) Pulse Ox O2 Delivery O2 Flow Rate FiO2 09/30/17 09:22 96 Nasal Cannula 2.00 09/30/17 07:52 97.9 87 18 146/68 (94) 93 09/30/17 04:53 82 09/30/17 04:46 96.2 106 18 152/79 (103) 94 09/30/17 00:00 97.0 107 18 140/66 (90) 96 09/29/17 20:55 93 Nasal Cannula 2.00 09/29/17 20:00 96.1 87 19 131/72 (91) 97 09/29/17 16:00 98.2 93 20 134/64 (87) 94 Intake & Output 09/30/17 09/30/17 07:00 19:00 Intake Total 1246 ml Balance 1246 ml IV Total 1246 ml # Voids 3 Physical Exam CONSTITUTIONAL/GENERAL: This is an elderly, thin frail female patient, very lethargic today TUBES/LINES/DRAINS: PIV x 2 SKIN: No jaundice, rashes, or lesions. Ecchymoses on upper extremities. No wounds seen anteriorly. Skin temperature appropriate. Not diaphoretic. EYES: Pupils equal and round and reactive. Extraocular motions intact. No scleral icterus. No injection or drainage. Fundi not examined. ENT: Hard of hearing. Nose without bleeding or purulent drainage. CARDIOVASCULAR: Regular rate and rhythm without murmurs, gallops, or rubs. No JVD. Peripheral pulses symmetric. RESPIRATORY/CHEST: Symmetric, unlabored respirations. Lungs rhonchi to auscultation. Breath sounds equal bilaterally. No wheezes. GASTROINTESTINAL: Abdomen soft, non-tender, nondistended. No guarding. Hypoactive bowel sounds. MUSCULOSKELETAL: Extremities without clubbing, cyanosis, or edema. No mottling or clubbing. NEUROLOGICAL: Awake and alert. Mumbles a few unintelligible words. Follows simple one step commands. PSYCHIATRIC:Unable to assess secondary to clinical condition. . Diagnostic Tests Laboratory Laboratory Tests Test 09/28/17 04:45 09/29/17 07:00 09/30/17 07:16 White Blood Count 13.3 TH/MM3 (4.0-11.0) 12.1 TH/MM3 (4.0-11.0) 14.2 TH/MM3 (4.0-11.0) Red Blood Count 3.49 MIL/MM3 (4.00-5.30) 3.27 MIL/MM3 (4.00-5.30) 3.69 MIL/MM3 (4.00-5.30) Hemoglobin 11.3 GM/DL (11.6-15.3) 10.2 GM/DL (11.6-15.3) 11.5 GM/DL (11.6-15.3) Hematocrit 32.8 % (35.0-46.0) 30.5 % (35.0-46.0) 34.8 % (35.0-46.0) Mean Corpuscular Volume 93.9 FL (80.0-100.0) 93.3 FL (80.0-100.0) 94.4 FL (80.0-100.0) Mean Corpuscular Hemoglobin 32.2 PG (27.0-34.0) 31.3 PG (27.0-34.0) 31.3 PG (27.0-34.0) Mean Corpuscular Hemoglobin Concent 34.3 % (32.0-36.0) 33.6 % (32.0-36.0) 33.2 % (32.0-36.0) Red Cell Distribution Width 13.8 % (11.6-17.2) 14.1 % (11.6-17.2) 14.3 % (11.6-17.2) Platelet Count 392 TH/MM3 (150-450) 376 TH/MM3 (150-450) 414 TH/MM3 (150-450) Mean Platelet Volume 7.8 FL (7.0-11.0) 7.6 FL (7.0-11.0) 7.7 FL (7.0-11.0) Neutrophils (%) (Auto) 76.7 % (16.0-70.0) 76.2 % (16.0-70.0) 75.8 % (16.0-70.0) Lymphocytes (%) (Auto) 14.5 % (9.0-44.0) 15.0 % (9.0-44.0) 15.2 % (9.0-44.0) Monocytes (%) (Auto) 5.1 % (0.0-8.0) 5.4 % (0.0-8.0) 5.5 % (0.0-8.0) Eosinophils (%) (Auto) 2.9 % (0.0-4.0) 2.7 % (0.0-4.0) 2.9 % (0.0-4.0) Basophils (%) (Auto) 0.8 % (0.0-2.0) 0.7 % (0.0-2.0) 0.6 % (0.0-2.0) Neutrophils # (Auto) 10.2 TH/MM3 (1.8-7.7) 9.2 TH/MM3 (1.8-7.7) 10.8 TH/MM3 (1.8-7.7) Lymphocytes # (Auto) 1.9 TH/MM3 (1.0-4.8) 1.8 TH/MM3 (1.0-4.8) 2.2 TH/MM3 (1.0-4.8) Monocytes # (Auto) 0.7 TH/MM3 (0-0.9) 0.7 TH/MM3 (0-0.9) 0.8 TH/MM3 (0-0.9) Eosinophils # (Auto) 0.4 TH/MM3 (0-0.4) 0.3 TH/MM3 (0-0.4) 0.4 TH/MM3 (0-0.4) Basophils # (Auto) 0.1 TH/MM3 (0-0.2) 0.1 TH/MM3 (0-0.2) 0.1 TH/MM3 (0-0.2) CBC Comment AUTO DIFF AUTO DIFF AUTO DIFF Differential Total Cells Counted 100 100 Neutrophils % (Manual) 81 % (16-70) 71 % (16-70) Lymphocytes % 13 % (9-44) 16 % (9-44) Monocytes % 2 % (0-8) 2 % (0-8) Eosinophils % 1 % (0-4) 5 % (0-4) Neutrophils # (Manual) 11.2 TH/MM3 (1.8-7.7) 10.8 TH/MM3 (1.8-7.7) Myelocytes 3 % (0-0) 1 % (0-0) Differential Comment FINAL DIFF MANUAL AUTO DIFF CONFIRMED FINAL DIFF MANUAL Platelet Estimate NORMAL (NORMAL) NORMAL (NORMAL) Platelet Morphology Comment NORMAL (NORMAL) NORMAL (NORMAL) Red Cell Morphology Comment NORMAL (NORMAL) NORMAL (NORMAL) Blood Urea Nitrogen 9 MG/DL (7-18) 6 MG/DL (7-18) 5 MG/DL (7-18) Creatinine 0.53 MG/DL (0.50-1.00) 0.64 MG/DL (0.50-1.00) 0.62 MG/DL (0.50-1.00) Random Glucose 67 MG/DL (74-106) 128 MG/DL (74-106) 102 MG/DL (74-106) Calcium Level 8.0 MG/DL (8.5-10.1) 7.6 MG/DL (8.5-10.1) 8.0 MG/DL (8.5-10.1) Sodium Level 142 MEQ/L (136-145) 143 MEQ/L (136-145) 144 MEQ/L (136-145) Potassium Level 2.9 MEQ/L (3.5-5.1) 2.7 MEQ/L (3.5-5.1) 3.1 MEQ/L (3.5-5.1) Chloride Level 110 MEQ/L (98-107) 109 MEQ/L (98-107) 112 MEQ/L (98-107) Carbon Dioxide Level 19.1 MEQ/L (21.0-32.0) 23.4 MEQ/L (21.0-32.0) 21.8 MEQ/L (21.0-32.0) Anion Gap 13 MEQ/L (5-15) 11 MEQ/L (5-15) 10 MEQ/L (5-15) Estimat Glomerular Filtration Rate 109 ML/MIN (>89) 88 ML/MIN (>89) 91 ML/MIN (>89) Total Protein 5.3 GM/DL (6.4-8.2) Albumin 2.1 GM/DL (3.4-5.0) Magnesium Level 1.9 MG/DL (1.5-2.5) 2.0 MG/DL (1.5-2.5) Alkaline Phosphatase 39 U/L (45-117) Aspartate Amino Transf (AST/SGOT) 30 U/L (15-37) Alanine Aminotransferase (ALT/SGPT) 21 U/L (10-53) Total Bilirubin 0.5 MG/DL (0.2-1.0) Band Neutrophils % 3 % (0-6) Basophils % 1 % (0-2) Metamyelocytes 1 % (0-1) . Result Diagram: 09/30/17 0716 09/30/17 0716 Assessment and Plan Disease Oriented Problem List: (1) Dementia (2) Pneumonia (3) Urinary tract infection (4) Sepsis Symptom Scale: (1) Confusion (2) Debility (3) Shortness of breath Pertinent Non-Medical Issues Psychosocial: Patient has lived in [place] most of her life, she is and has two adult children, her son Sherron lives in [place] and her daughter Bella lives in [place]. She worked for the [employer] in the [employer] for over 10 years. She has been living independently for many years up until this April, when she was found wandering by her apartment complex's management staff, at which time they relayed to her family they would not renew the lease as it was unsafe. Her daughter had a short time frame to arrange a stable living situation for her mother given her rapidly progressive dementia, at that time she was moved to a SNF. Family is hoping to potentially move the patient to a facility closer to their residences. Spiritual: Sikh. Legal: None known. Ethical issues impacting care: None known. . Important Contacts Bella Mean ([facility]) (daughter) [phone] [email or web address] Sherron Mena Alternate [facility] (son) [phone] . Prognosis Patient is an 86 year old female with a past medical history significant for dementia who was hospitalized for altered mental status, possible aspiration pneumonia, and UTI. Patient had been living independently, able to pay her own bills, go grocery shopping, make doctor appointments etc. up until April of this year at which point she was subsequently moved into a SNF. Due to her advanced age and per patient's family rapid decline in mentation secondary to dementia the patient is at an ongoing risk for complications and setbacks. . Code Status: No Code Plan * Legal decision maker: Patient is currently not capacitated to make informed medical decisions independently and will not regain capacity. Patient's daughter Bella Mena is the patient's documented HCS [phone], alternate HCS is patient's son Sherron Mena [phone]. * Goals: Comfort oriented. Patient's daughter Bella Mena is currently completing Hospice paperwork and plans to return it today. * CODE STATUS: DNR/DNI * SYMPTOMS: --Confusion: Secondary to long standing history of dementia. Recommend ongoing reorientation. Patient not able to follow simple commands during swallow evaluation- high risk for aspiration. --Debility: Multifactorial, due to advanced age, dementia, etc. Patient would benefit from PT/OT when/if she is able to. --Shortness of breath: Patient currently breathing comfortably on room air, duonebs q 4 hours PRN ordered. No recommendations at this time. * Palliative care will continue to follow during hospital course as condition evolves, to assist patient/decision-maker with understanding of medical conditions, weighing benefits/burdens of treatment options, for clarification of goals of treatment. Additionally will assist with any symptoms of palliative concern Attestation To help prompt me to consider important information that might be impacting today's encounter and assessment, information from prior notes written by myself or my colleagues may have been "brought forward" into today's note. My signature on this note, however, is an attestation that I personally performed the exam, history, and/or decision-making noted today, and, unless otherwise indicated, the interactions with patient, family, and staff as well as the review of records all occurred today. I also attest that the listed assessment and stated plan reflect my best clinical judgment today based on the combination of historical information, prior notes, and today's exam/ interactions. When time spent is documented, it refers only to time spent today by the signer, or if indicated, combined time spent today by collaborating physician/nurse practitioner. Saritha Pack Sep 30, 2017 13:23
[2017-09-30] MEDS: QUEtiapine FUMARATE 25 MG TAB PO SCH (20:52)
[2017-09-30] MEDS: DONEPEZIL HCL 5 MG TAB PO SCH (20:52)
[2017-10-01] VITALS: BP 145/65; PULSE 92; RESP 17; TEMP 96.3; O2SAT 93
[2017-10-01] MEDS: PIPERACIL-TAZO 4.5 GM PREMIX 100 ML IV SCH ×3 (02:03→13:00)
[2017-10-01 04:00] VITALS: BP 125/93; PULSE 86; RESP 17; TEMP 95.6; O2SAT 95
[2017-10-01 08:00] VITALS: BP 146/66; PULSE 77; RESP 15; TEMP 97.3; O2SAT 94
[2017-10-01 08:07] LABS: AUTOMATED NEUTROPHIL # 8.7 TH/MM3 (1.8-7.7); BASOPHIL # 0.1 TH/MM3 (0-0.2); BASOPHIL % 0.7 % (0.0-2.0); EOSINOPHIL # 0.3 TH/MM3 (0-0.4); EOSINOPHIL % 2.8 % (0.0-4.0); HEMATOCRIT 33.1 % (35.0-46.0); HEMO FLAGS DIFF FINAL; LYMPH % 18.3 % (9.0-44.0); LYMPHOCYTE # 2.2 TH/MM3 (1.0-4.8); MEAN CELL VOLUME 94.5 FL (80.0-100.0); MEAN CORPUSCULAR HEMOGLOBIN 32.2 PG (27.0-34.0); MEAN CORPUSCULAR HGB CONC 34.1 % (32.0-36.0); MONO % 5.7 % (0.0-8.0); NEUT % 72.5 % (16.0-70.0); PLATELET COUNT 377 TH/MM3 (150-450); RED CELL DISTRIBUTION WIDTH 14.5 % (11.6-17.2)
[2017-10-01 08:26] LABS: BICARBONATE 24.9 MEQ/L (21.0-32.0); POTASSIUM 3.4 MEQ/L (3.5-5.1)
[2017-10-01 08:40] VITALS: O2SAT 93
[2017-10-01] MEDS: RESP: ALBUTEROL 2.5 MG/IPRATROPIUM 0.5 MG NEB (SCH) INH ×3 (08:42→16:00)
[2017-10-01] MEDS ORDERED: POTASSIUM CHLORIDE 25 MEQ EFFERVESCENT TAB PO ONE (09:45)
[2017-10-01] MEDS: AZITHROMYCIN INJ 500 MG in SODIUM CHLOR 0.9% 250 ML INJ 250 ML IV SCH (10:37)
[2017-10-01] MEDS: CHOLECALCIFEROL (VIT D3) 1000 UNIT TAB PO SCH (10:39)
[2017-10-01] MEDS: FUROSEMIDE 20 MG TAB PO SCH (10:39)
[2017-10-01] MEDS: LORATADINE 10 MG TAB PO SCH (10:39)
[2017-10-01] MEDS: POTASSIUM CHLORIDE 25 MEQ EFFERVESCENT TAB PO SCH (10:40)
[2017-10-01] MEDS: MEGESTROL ACETATE SUSP 400 MG/10 ML CUP PO SCH (10:40)
--- NOTE | 2017-10-01 11:54 | HHI.PR ---
Subjective Remarks Follow-up UTI, pneumonia, dementia. Patient still does not answer questions, but she is alert today. Per nursing, she has been eating better. She is taking her meds orally. Objective Vitals Vital Signs Date Time Temp Pulse Resp B/P (MAP) Pulse Ox O2 Delivery O2 Flow Rate FiO2 10/01/17 08:40 93 21 10/01/17 08:00 97.3 77 15 146/66 (92) 94 10/01/17 04:00 95.6 86 17 125/93 (104) 95 10/01/17 00:00 96.3 92 17 145/65 (91) 93 09/30/17 22:42 92 09/30/17 20:16 97 09/30/17 20:00 96.2 108 17 174/69 (104) 93 174/69 (104) 09/30/17 15:47 98.5 97 20 128/61 (83) 95 09/30/17 12:00 98.1 101 18 127/66 (86) 93 I/O 09/30/17 09/30/17 09/30/17 10/01/17 10/01/17 10/01/17 07:00 15:00 23:00 07:00 15:00 23:00 Intake Total 1046 ml 450 ml 420 ml 200 ml Balance 1046 ml 450 ml 420 ml 200 ml Intake Oral 420 ml IV Total 1046 ml 450 ml 200 ml # Voids 3 3 2 # Bowel Movements 5 Result Diagram: 10/01/17 0656 10/01/17 0656 Imaging Last Impressions Chest X-Ray 09/23/17 0807 Signed Impressions: Service Date/Time: Saturday, September 23, 2017 08:15 - CONCLUSION: 1. Airspace consolidation in the right medial and left lower lung zones. Differential considerations include aspiration vs pneumonia given history of cough. Ramon Pires MD Objective Remarks General: Elderly female in no acute distress. Heart: Regular rate and rhythm. No murmur. Lungs: Bilateral rhonchi. Breathing is nonlabored. Abdomen: Soft, nontender, nondistended. Extremities: No lower extremity edema. Psych: Alert, but does not answer questions. Procedures None Urinary Catheter: No Vascular Central Line Catheter: No A/P Problem List: (1) Dementia ICD Code: F03.90 - Unspecified dementia without behavioral disturbance (2) Sepsis ICD Code: A41.9 - Sepsis, unspecified organism Status: Acute (3) Pneumonia ICD Code: J18.9 - Pneumonia, unspecified organism Status: Acute (4) Urinary tract infection ICD Code: N39.0 - Urinary tract infection, site not specified Status: Acute Assessment and Plan 1. Pneumonia, healthcare associated versus aspiration: Continue Zosyn, azithromycin. Continue supplemental oxygen. Per speech therapy, keep NPO. 2. Chronic dementia: Continue home medications. 3. UTI: Continue antibiotics. Urine culture growing e coli. 4. Sepsis: Secondary to above. Monitor leukocytosis, fever. Tachycardia has improved. 5. DVT prophylaxis: Indigo, GEN montero. 6. Palliative care following. Hospice consulted. Patient's family has requested hospice care. We are waiting consents to be signed and decision to be [facility]. 7. Poor oral intake: Appreciate speech therapy recommendations. Diet advanced today to pure with thin liquids. Appreciate Palliative care recommendations. Patient's daughter, who is the healthcare surrogate, does not want the patient to have an NG tube or a PEG per discussion with palliative care. Appreciate dietary recommendations. 8. Hypokalemia: Supplement potassium. 9. Diarrhea: C. difficile pending. 10. CODE STATUS: DO NOT RESUSCITATE. Discharge Planning For discharge back to SNF today. Patient may go to SNF under hospice care or may initiate hospice care at the SNF. Problem Qualifiers (1) Sepsis: Qualified Codes: A41.9 - Sepsis, unspecified organism (2) Pneumonia: Qualified Codes: J18.9 - Pneumonia, unspecified organism (3) Urinary tract infection: Qualified Codes: N30.00 - Acute cystitis without hematuria Curry Andrade MD Oct 01, 2017 11:54
[2017-10-01] MEDS ORDERED: LORA0.5T PO (11:59)
[2017-10-01 12:00] VITALS: BP 152/58; PULSE 79; RESP 17; TEMP 96.9; O2SAT 93
--- NOTE | 2017-10-01 12:00 | HHI.DCPOC ---
Discharge Care Plan Diagnosis: (1) Debility (2) Dementia (3) Confusion (4) Shortness of breath (5) Pneumonia (6) Sepsis (7) Urinary tract infection Goals to Promote Your Health * To prevent worsening of your condition and complications * To maintain your health at the optimal level Directions to Meet Your Goals Take your medications as prescribed Follow your dietary instruction Follow activity as directed Keep your appointments as scheduled Take your immunizations and boosters as scheduled If your symptoms worsen call your PCP, if no PCP go to Urgent Care Center or Emergency Room Smoking is Dangerous to Your Health. Avoid second hand smoke Call the 24-hour hour crisis hotline for domestic abuse at Curry Andrade MD Oct 01, 2017 12:00
--- NOTE | 2017-10-01 12:41 | HHI.HCPN ---
Reason for visit a. To assist with evaluation and management of symptoms including: shortness of breath, debility, confusion b. To assist medical decision maker(s) with: better understanding of current medical conditions; weighing benefits/burdens of medical treatment options; making medical treatment decisions. . Subjective/Interval History Patient seen today and examined, sitting up right in bed, awake and alert, mumbles a few unintelligible words. Medical attending plans to discharge to SNF with Hospice today. Telephone conference with patient's daughter Bella Mena at patient's bedside, facilitated conversation between the patient and daughter. . Family/friend interactions Telephone conference with patient's daughter Bella Mena. . Advance Directives Health Care Surrogate: Copy in medical record Advance Directive Specifics Date completed: 03/27/17. . Health Care Surrogate(s): HCS: Bella Mena (daughter) Alternate HCS: Sherron Mena (son) . Objective Vital Signs Date Time Temp Pulse Resp B/P (MAP) Pulse Ox O2 Delivery O2 Flow Rate FiO2 10/01/17 12:00 96.9 79 17 152/58 (89) 93 10/01/17 08:40 93 21 10/01/17 08:00 97.3 77 15 146/66 (92) 94 10/01/17 04:00 95.6 86 17 125/93 (104) 95 10/01/17 00:00 96.3 92 17 145/65 (91) 93 09/30/17 22:42 92 09/30/17 20:16 97 09/30/17 20:00 96.2 108 17 174/69 (104) 93 174/69 (104) 09/30/17 15:47 98.5 97 20 128/61 (83) 95 Intake & Output 10/01/17 10/01/17 07:00 19:00 Intake Total 200 ml Balance 200 ml IV Total 200 ml # Voids 2 . Physical Exam CONSTITUTIONAL/GENERAL: This is an elderly, thin frail female patient, very lethargic today TUBES/LINES/DRAINS: PIV x 2 SKIN: No jaundice, rashes, or lesions. Ecchymoses on upper extremities. No wounds seen anteriorly. Skin temperature appropriate. Not diaphoretic. EYES: Pupils equal and round and reactive. Extraocular motions intact. No scleral icterus. No injection or drainage. Fundi not examined. CARDIOVASCULAR: Regular rate and rhythm without murmurs, gallops, or rubs. No JVD. Peripheral pulses symmetric. RESPIRATORY/CHEST: Symmetric, unlabored respirations. Lungs rhonchi to auscultation. Breath sounds equal bilaterally. No wheezes. GASTROINTESTINAL: Abdomen soft, non-tender, nondistended. No guarding. Active bowel sounds all four quadrants. MUSCULOSKELETAL: Extremities without clubbing, cyanosis, or edema. No mottling or clubbing. NEUROLOGICAL: Awake and alert. Mumbles a few unintelligible words. Follows simple one step commands. PSYCHIATRIC:Unable to assess secondary to clinical condition. . Diagnostic Tests Laboratory Laboratory Tests Test 09/29/17 07:00 09/30/17 07:16 10/01/17 06:56 White Blood Count 12.1 TH/MM3 (4.0-11.0) 14.2 TH/MM3 (4.0-11.0) 12.0 TH/MM3 (4.0-11.0) Red Blood Count 3.27 MIL/MM3 (4.00-5.30) 3.69 MIL/MM3 (4.00-5.30) 3.50 MIL/MM3 (4.00-5.30) Hemoglobin 10.2 GM/DL (11.6-15.3) 11.5 GM/DL (11.6-15.3) 11.3 GM/DL (11.6-15.3) Hematocrit 30.5 % (35.0-46.0) 34.8 % (35.0-46.0) 33.1 % (35.0-46.0) Mean Corpuscular Volume 93.3 FL (80.0-100.0) 94.4 FL (80.0-100.0) 94.5 FL (80.0-100.0) Mean Corpuscular Hemoglobin 31.3 PG (27.0-34.0) 31.3 PG (27.0-34.0) 32.2 PG (27.0-34.0) Mean Corpuscular Hemoglobin Concent 33.6 % (32.0-36.0) 33.2 % (32.0-36.0) 34.1 % (32.0-36.0) Red Cell Distribution Width 14.1 % (11.6-17.2) 14.3 % (11.6-17.2) 14.5 % (11.6-17.2) Platelet Count 376 TH/MM3 (150-450) 414 TH/MM3 (150-450) 377 TH/MM3 (150-450) Mean Platelet Volume 7.6 FL (7.0-11.0) 7.7 FL (7.0-11.0) 7.8 FL (7.0-11.0) Neutrophils (%) (Auto) 76.2 % (16.0-70.0) 75.8 % (16.0-70.0) 72.5 % (16.0-70.0) Lymphocytes (%) (Auto) 15.0 % (9.0-44.0) 15.2 % (9.0-44.0) 18.3 % (9.0-44.0) Monocytes (%) (Auto) 5.4 % (0.0-8.0) 5.5 % (0.0-8.0) 5.7 % (0.0-8.0) Eosinophils (%) (Auto) 2.7 % (0.0-4.0) 2.9 % (0.0-4.0) 2.8 % (0.0-4.0) Basophils (%) (Auto) 0.7 % (0.0-2.0) 0.6 % (0.0-2.0) 0.7 % (0.0-2.0) Neutrophils # (Auto) 9.2 TH/MM3 (1.8-7.7) 10.8 TH/MM3 (1.8-7.7) 8.7 TH/MM3 (1.8-7.7) Lymphocytes # (Auto) 1.8 TH/MM3 (1.0-4.8) 2.2 TH/MM3 (1.0-4.8) 2.2 TH/MM3 (1.0-4.8) Monocytes # (Auto) 0.7 TH/MM3 (0-0.9) 0.8 TH/MM3 (0-0.9) 0.7 TH/MM3 (0-0.9) Eosinophils # (Auto) 0.3 TH/MM3 (0-0.4) 0.4 TH/MM3 (0-0.4) 0.3 TH/MM3 (0-0.4) Basophils # (Auto) 0.1 TH/MM3 (0-0.2) 0.1 TH/MM3 (0-0.2) 0.1 TH/MM3 (0-0.2) CBC Comment AUTO DIFF AUTO DIFF DIFF FINAL Differential Comment AUTO DIFF CONFIRMED FINAL DIFF MANUAL Blood Urea Nitrogen 6 MG/DL (7-18) 5 MG/DL (7-18) 7 MG/DL (7-18) Creatinine 0.64 MG/DL (0.50-1.00) 0.62 MG/DL (0.50-1.00) 0.72 MG/DL (0.50-1.00) Random Glucose 128 MG/DL (74-106) 102 MG/DL (74-106) 89 MG/DL (74-106) Total Protein 5.3 GM/DL (6.4-8.2) Albumin 2.1 GM/DL (3.4-5.0) Calcium Level 7.6 MG/DL (8.5-10.1) 8.0 MG/DL (8.5-10.1) 8.2 MG/DL (8.5-10.1) Magnesium Level 1.9 MG/DL (1.5-2.5) 2.0 MG/DL (1.5-2.5) Alkaline Phosphatase 39 U/L (45-117) Aspartate Amino Transf (AST/SGOT) 30 U/L (15-37) Alanine Aminotransferase (ALT/SGPT) 21 U/L (10-53) Total Bilirubin 0.5 MG/DL (0.2-1.0) Sodium Level 143 MEQ/L (136-145) 144 MEQ/L (136-145) 142 MEQ/L (136-145) Potassium Level 2.7 MEQ/L (3.5-5.1) 3.1 MEQ/L (3.5-5.1) 3.4 MEQ/L (3.5-5.1) Chloride Level 109 MEQ/L (98-107) 112 MEQ/L (98-107) 111 MEQ/L (98-107) Carbon Dioxide Level 23.4 MEQ/L (21.0-32.0) 21.8 MEQ/L (21.0-32.0) 24.9 MEQ/L (21.0-32.0) Anion Gap 11 MEQ/L (5-15) 10 MEQ/L (5-15) 6 MEQ/L (5-15) Estimat Glomerular Filtration Rate 88 ML/MIN (>89) 91 ML/MIN (>89) 76 ML/MIN (>89) Differential Total Cells Counted 100 Neutrophils % (Manual) 71 % (16-70) Band Neutrophils % 3 % (0-6) Lymphocytes % 16 % (9-44) Monocytes % 2 % (0-8) Eosinophils % 5 % (0-4) Basophils % 1 % (0-2) Neutrophils # (Manual) 10.8 TH/MM3 (1.8-7.7) Metamyelocytes 1 % (0-1) Myelocytes 1 % (0-0) Platelet Estimate NORMAL (NORMAL) Platelet Morphology Comment NORMAL (NORMAL) Red Cell Morphology Comment NORMAL (NORMAL) Result Diagram: 10/01/1756 10/01/17655 Assessment and Plan Disease Oriented Problem List: (1) Dementia (2) Pneumonia (3) Urinary tract infection (4) Sepsis Symptom Scale: (1) Confusion (2) Debility (3) Shortness of breath Pertinent Non-Medical Issues Psychosocial: Patient has lived in [place] most of her life, she is and has two adult children, her son Sherron lives in [place] and her daughter Bella lives in [place]. She worked for the [employer] in the [employer] for over 10 years. She has been living independently for many years up until this April, when she was found wandering by her apartment complex's management staff, at which time they relayed to her family they would not renew the lease as it was unsafe. Her daughter had a short time frame to arrange a stable living situation for her mother given her rapidly progressive dementia, at that time she was moved to a SNF. Family is hoping to potentially move the patient to a facility closer to their residences. Spiritual: Mosque. Legal: None known. Ethical issues impacting care: None known. . Important Contacts Bella Mena ([facility]) (daughter) [phone] [email or web address] Sherron Mena Alternate [facility] (son) [phone] . Prognosis Patient is an 86 year old female with a past medical history significant for dementia who was hospitalized for altered mental status, possible aspiration pneumonia, and UTI. Patient had been living independently, able to pay her own bills, go grocery shopping, make doctor appointments etc. up until April of this year at which point she was subsequently moved into a SNF. Due to her advanced age and per patient's family rapid decline in mentation secondary to dementia the patient is at an ongoing risk for complications and setbacks. . Code Status: No Code Plan * Legal decision maker: Patient is currently not capacitated to make informed medical decisions independently and will not regain capacity. Patient's daughter Bella Mena is the patient's documented HCS [phone], alternate HCS is patient's son Sherron Mena [phone]. * Goals: Comfort oriented. Patient to be discharged to SNF with Hospice today. * CODE STATUS: DNR/DNI * SYMPTOMS: --Confusion: Secondary to long standing history of dementia. Recommend ongoing reorientation. Patient not able to follow simple commands during swallow evaluation- high risk for aspiration. --Debility: Multifactorial, due to advanced age, dementia, etc. Patient would benefit from PT/OT when/if she is able to. --Shortness of breath: Patient currently breathing comfortably on room air, duonebs q 4 hours PRN ordered. No recommendations at this time. * Palliative care will continue to follow during hospital course as condition evolves, to assist patient/decision-maker with understanding of medical conditions, weighing benefits/burdens of treatment options, for clarification of goals of treatment. Additionally will assist with any symptoms of palliative concern Attestation To help prompt me to consider important information that might be impacting today's encounter and assessment, information from prior notes written by myself or my colleagues may have been "brought forward" into today's note. My signature on this note, however, is an attestation that I personally performed the exam, history, and/or decision-making noted today, and, unless otherwise indicated, the interactions with patient, family, and staff as well as the review of records all occurred today. I also attest that the listed assessment and stated plan reflect my best clinical judgment today based on the combination of historical information, prior notes, and today's exam/ interactions. When time spent is documented, it refers only to time spent today by the signer, or if indicated, combined time spent today by collaborating physician/nurse practitioner. Saritha Pack Oct 01, 2017 12:41
[2017-10-01 16:00] VITALS: BP 148/63; PULSE 75; RESP 16; TEMP 98.1; O2SAT 93
== END 2017-10-01 18:27 | disposition hospice, inpatient (51) | DRG 871 ==
LOC: NEPE 07:58 → NEDA 10:22 → N07B 15:33
PROVIDERS: ADMIT Family Medicine; ATTEND Family Medicine
DX: A41.51 Sepsis due to Escherichia coli [E. coli] (principal); J18.9 Pneumonia, unspecified organism; F03.90 Unspecified dementia, unspecified severity, without behavioral disturbance, psychotic disturbance, mood disturbance, and anxiety; N39.0 Urinary tract infection, site not specified; E87.6 Hypokalemia; B96.20 Unspecified Escherichia coli [E. coli] as the cause of diseases classified elsewhere; E55.9 Vitamin D deficiency, unspecified; G47.00 Insomnia, unspecified; F41.9 Anxiety disorder, unspecified; Z51.5 Encounter for palliative care; Z66 Do not resuscitate; Z88.2 Allergy status to sulfonamides
CPT/HCPCS: 71010; 80048; 80053; 81001; 83605; 83735; 85007; 85025; 85027; 87040; 87077; 87086; 87186; 87804; 93005; 94640; 94664; 96361; 96365; 96375; G8996-GN; G8997-GN; J0456; J0696; J2543; J3480; J7030; J7050; P9612